=== PATIENT | male | born 1985 | race Two or more races ===

== ENCOUNTER 2018-08-21 08:44 | Inpatient (IN) | payer OTHER ==
[2018-08-21 09:05] VITALS: BMI 20.9
--- NOTE | 2018-08-21 09:35 | HP ---
COWS - Scale Resting Pulse: 0= NE 80 or Below Sweatin= Chills/Flushing Restless Observation: 3= Extraneous Movement Pupil Size: 1= Pupils >than Normal Bone or Joint Aches: 2= Severe Diffuse Aches Runny Nose/ Eye Tearin= Runny Nose/Eyes GI Upset > 30mins: 2= Nausea/Diarrhea Tremor Observation: 2= Slight Tremor Visible Yawning Observation: 2= >3x During Session Anxiety or Irritability: 2=Irritable/Anxious Goose Flesh Skin: 0=Smooth Skin COWS Score: 17 CIWA Score - Admission Criteria [facility] Guidelines: Admission for Medically Managed Detox: Requires at least one of the followin. CIWA greater than 12 2. Seizures within the past 24 hours 3. Delirium tremens within the past 24 hours 4. Hallucinations within the past 24 hours 5. Acute intervention needed for co occurring medical disorder 6. Acute intervention needed for co occurring psychiatric disorder 7. Severe withdrawal that cannot be handled at a lower level of care (continued vomiting, continued diarrhea, abnormal vital signs) requiring intravenous medication and/or fluids 8. Admission ROS [facility] - [facility] Chief Complaint: i am here to stop using heroin and cocaine Allergies/Adverse Reactions: Allergies Allergy/AdvReac Type Severity Reaction Status Date / Time No Known Allergies Allergy Verified 08/21/18 09:48 History of Present Illness: this 32 years old male with heroin and cocaine dependence,seeking detox, withdrawal symptom,never been in detox before history of juvenile diabetes mellitus,non compliance hiv positive since weight loss nicotine dependence 10 cigarette/day anxiety,depression,bipolar disorder no medication no significant period of sobriety Exam Limitations: No Limitations - Ebola screening Have you traveled outside of the country in the last 21 days: No Have you had contact with anyone from an Ebola affected area: No Have you been sick,other than usual withdrawal symptoms: No Do you have a fever: No - Review of Systems Constitutional: Chills, Loss of Appetite, Malaise, Night Sweats, Changes in sleep, Weakness, Unintentional Wgt. Loss EENT: reports: Tearing, Nose Congestion Respiratory: reports: No Symptoms reported Cardiac: reports: No Symptoms Reported GI: reports: Nausea, Vomiting, Abdominal cramping : reports: No Symptoms Reported Musculoskeletal: reports: Back Pain, Joint Pain, Muscle Pain, Joint Stiffness Integumentary: reports: Dryness Neuro: reports: Headache, Tremors Endocrine: reports: No Symptoms Reported, Other (iddm) Hematology: reports: No Symptoms Reported, Other (hiv) Psychiatric: reports: No Sypmtoms Reported, Judgement Intact, Mood/Affect Appropiate, Orientated x3 Other Systems: Reviewed and Negative Patient History - Patient Medical History Hx Anemia: No Hx Asthma: No Hx Chronic Obstructive Pulmonary Disease (COPD): No Hx Cancer: No Hx Cardiac Disorders: No Hx Congestive Heart Failure: No Hx Hypertension: No Hx Hypercholesterolemia: No Hx Pacemaker: No HX Cerebrovascular Accident: No Hx Seizures: No Hx Dementia: No Hx Diabetes: Yes (juvenile dm on insulin) Hx Gastrointestinal Disorders: No Hx Liver Disease: No Hx Genitourinary Disorders: No Hx Sexually Transmitted Disorders: No Hx Renal Disease (ESRD): No Hx Thyroid Disease: No Hx Human Immunodeficiency Virus (HIV): Yes (since childbirth) Hx Hepatitis C: No Hx Depression: Yes (anxiety) Hx Suicide Attempt: No Hx Bipolar Disorder: Yes Hx Schizophrenia: No Other Medical History: no suicidal,no homicidal - Patient Surgical History Past Surgical History: No - PPD History Previous Implant?: Yes Documented Results: Negative w/o proof Implanted On Prior [facility] Admission?: No PPD to be Administered?: Yes - Smoking Cessation Smoking history: Current every day smoker Have you smoked in the past 12 months: Yes Aproximately how many cigarettes per day: 10 Hx Chewing Tobacco Use: No Initiated information on smoking cessation: Yes 'Breaking Loose' booklet given: 08/21/18 - Substance & Tx. History Hx Alcohol Use: No Hx Substance Use: Yes Substance Use Type: Cocaine, Heroin Hx Substance Use Treatment: No - Substances Abused Heroin Route: Inhalation Frequency: Daily Amount used: 7 bags Age of first use: 26 Date of Last Use: 08/20/18 Cocaine Route: Smoking Frequency: 3-6 times per week Amount used: 300$ Age of first use: 31 Date of Last Use: 08/19/18 Family Disease History - Family Disease History Family History: Denies Admission Physical Exam BHS - Vital Signs Vital Signs: Vital Signs - 24 hr 08/21/18 09:02 Temperature 97.4 F L Pulse Rate 77 Respiratory 20 Rate Blood Pressure 117/86 - Physical General Appearance: Yes: Moderate Distress, Tremorous, Irritable, Sweating, Anxious HEENTM: Yes: Normal ENT Inspection, VICTORINA, Pharynx Normal Respiratory: Yes: Lungs Clear, Normal Breath Sounds, No Respiratory Distress Neck: Yes: Within Normal Limits, Supple, Trachea in good position Breast: Yes: Within Normal Limits Cardiology: Yes: Within Normal Limits, Regular Rhythm, Regular Rate, S1, S2 Abdominal: Yes: Within Normal Limits, Normal Bowel Sounds, Non Tender, Flat, Soft Genitourinary: Yes: Within Normal Limits Back: Yes: Normal Inspection, Muscle Spasm Musculoskeletal: Yes: Back pain, Joint Stiffness, Muscle Pain Extremities: Yes: Tremors Neurological: Yes: vascular technologist II-XII NML intact, Fully Oriented, Alert, Motor Strength 5/5 Integumentary: Yes: Dry Lymphatic: Yes: Within Normal Limits - Diagnostic (1) Opioid dependence with withdrawal Current Visit: Yes Status: Acute (2) Cocaine dependence Current Visit: Yes Status: Acute (3) HIV (human immunodeficiency virus infection) Current Visit: Yes Status: Acute (4) Nicotine dependence Current Visit: Yes Status: Acute (5) Weight loss Current Visit: Yes Status: Acute (6) Dehydration Current Visit: Yes Status: Acute (7) Bipolar disorder Current Visit: Yes Status: Acute (8) IDDM (insulin dependent diabetes mellitus) Current Visit: Yes Status: Acute Cleared for Admission S - Detox or Rehab [facility] Level of Care: Medically Managed Detox Regimen/Protocol: Methadone [facility] Breath Alcohol Content Breath Alcohol Content: 0 Urine Drug Screen - Results Drug Screen Negative: No Urine Drug Screen Results: DONIS-Cocaine, OPI-Opiates Inpatient Rehab Admission - Rehab Decision to Admit Inpatient rehab admission?: No
[2018-08-21] MEDS ORDERED: P-EPHED 60MG/TRIPROLIDI 2.5MG TABLET PO PRN (09:44)
[2018-08-21] MEDS ORDERED: MAGNESIUM CITRATE 300 ML BOTTLE PO PRN (09:44)
[2018-08-21] MEDS ORDERED: MENTHOL/PHENOL 1 EACH UD MM PRN (09:44)
[2018-08-21] MEDS ORDERED: guaiFENesin/D-METHORPHAN HB 10 ML UNIT-DOSE CUPS PO PRN (09:44)
[2018-08-21] MEDS ORDERED: MAGNESIUM HYDROX 2400MG/30ML ORAL SUSPENSION 30 ML CUP PO PRN (09:44)
[2018-08-21] MEDS ORDERED: IBUPROFEN 400 MG TABLET (FP) PO PRN (09:44)
[2018-08-21] MEDS ORDERED: hydrOXYzine PAMOATE 25 MG CAPSULE (FP) PO PRN (09:44)
[2018-08-21] MEDS ORDERED: ACETAMINOPHEN 325 MG TABLET (FP) PO PRN (09:44)
[2018-08-21] MEDS ORDERED: LOPERAMIDE HCL 2 MG CAPSULE PO PRN (09:44)
[2018-08-21] MEDS ORDERED: NICOTINE POLACRILEX 2 MG GUM BC PRN (09:44)
[2018-08-21] MEDS ORDERED: MAG HYDROX/AL HYDROX/SIMETH 30 ML UNIT-DOSE CUP PO PRN (09:44)
[2018-08-21] MEDS ORDERED: METHADONE HCL 10 MG TABLET (FOR DETOX USE ONLY) PO ONE ×2 (11:00→23:00)
[2018-08-21] MEDS: diazePAM 5 MG TABLET PO PRN ×2 (13:10→22:18)
[2018-08-21] MEDS: PRENATAL VITAMINS W/ FOLIC ACID TABLET (FP) PO SCH (13:13)
[2018-08-21] MEDS: INSULIN (NOVOLOG) ASPART 100 UNITS/ML 10ML VIAL SQ SCH ×3 (13:14→22:20)
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
[2018-08-21] MEDS ORDERED: INSULIN (NOVOLOG) ASPART 100 UNITS/ML 10ML VIAL ONE ×2 (16:45→21:54)
[2018-08-21] MEDS: metFORMIN HCL 500 MG TABLET (FP) PO SCH (16:51)
[2018-08-21] MEDS: INSULIN (NOVOLOG MIX 70/30) 100 UNITS/ML MDV SQ SCH (16:51)
[2018-08-21 20:51] LABS: URINE APPEARANCE CLEAR; URINE BILIRUBIN NEGATIVE (<2.0 mg/dL); URINE COLOR LTYELLOW; URINE GLUCOSE (UA) 3+ (NEGATIVE); URINE KETONE TRACE (NEGATIVE); URINE LEUK ESTERASE NEGATIVE (NEGATIVE); URINE NITRITE NEGATIVE (NEGATIVE); URINE PROTEIN 3+ (NEGATIVE); URINE UROBILINOGEN NEGATIVE mg/dL (0.2-1.0)
[2018-08-21 21:06] LABS: EPI CELLS RARE /HPF (FEW); URINE BACTERIA FEW /hpf (NONE SEEN); URINE MUCUS RARE
[2018-08-21] MEDS ORDERED: MELATONIN 5 MG TABLETS PO PRN (22:00)
[2018-08-21] MEDS: THIAMINE HCL 100 MG TABLET (FP) PO SCH (22:18)
[2018-08-22] MEDS: diazePAM 5 MG TABLET PO PRN ×3 (06:28→23:25)
[2018-08-22] MEDS: metFORMIN HCL 500 MG TABLET (FP) PO SCH ×2 (08:00→16:51)
[2018-08-22] MEDS: INSULIN (NOVOLOG MIX 70/30) 100 UNITS/ML MDV SQ SCH ×2 (08:03→16:51)
[2018-08-22] MEDS: INSULIN (NOVOLOG) ASPART 100 UNITS/ML 10ML VIAL SQ SCH ×4 (08:03→23:32)
[2018-08-22] MEDS ORDERED: METHADONE HCL 10 MG TABLET (FOR DETOX USE ONLY) PO ONE (10:00)
[2018-08-22] MEDS: PRENATAL VITAMINS W/ FOLIC ACID TABLET (FP) PO SCH (10:17)
[2018-08-22 10:39] LABS: HEMATOCRIT 41.7 % (35.4-49); HEMOGLOBIN 14.1 GM/dL (11.7-16.9); MCH 34.1 pg (25.7-33.7); MCHC 33.8 g/dl (32.0-35.9); MEAN CELL VOLUME 100.7 fl (80-96); MEAN PLT VOLUME 9.7 fl (7.5-11.1); PLATELET COUNT 197 K/MM3 (134-434); RBC 4.14 M/mm3 (4.00-5.60); RDW 13.6 % (11.9-15.9); WHITE BLOOD COUNT 5.5 K/mm3 (4.0-10.0)
[2018-08-22 11:36] LABS: ALBUMIN 2.7 g/dl (3.4-5.0); ALK PHOS 174 U/L (45-117); ANION GAP 3 MMOL/L (8-16); BILIRUBIN,TOTAL 0.9 mg/dL (0.2-1); BLOOD UREA NITROGEN 11 mg/dL (7-18); CALCIUM 8.4 mg/dL (8.5-10.1); CHLORIDE 104 mmol/L (98-107); CO2 31 mmol/L (21-32); CREATININE 0.9 mg/dL (0.55-1.3); GLUCOSE,RANDOM 146 mg/dL (74-106); POTASSIUM 4.5 mmol/L (3.5-5.1); SGOT/AST 38 U/L (15-37); SGPT/ALT 89 U/L (13-61); SODIUM 138 mmol/L (136-145); TOT PROT 6.4 g/dl (6.4-8.2)
[2018-08-22] MEDS ORDERED: INSULIN (NOVOLOG) ASPART 100 UNITS/ML 10ML VIAL ONE ×2 (11:53→16:48)
--- NOTE | 2018-08-22 14:30 | PN ---
BHS COWS - Scale Resting Pulse: 1= [place] 81-100 Sweatin= Chills/Flushing Restless Observation: 0= Sits Still Pupil Size: 0= Normal to Room Light Bone or Joint Aches: 2= Severe Diffuse Aches Runny Nose/ Eye Tearin= None GI Upset > 30mins: 0= None Tremor Observation of Outstretched Hands: 2= Slight Tremor Visible Yawning Observation: 1= 1-2x During Session Anxiety or Irritability: 2=Irritable/Anxious Goose Flesh Skin: 3=Piloerection COWS Score: 12 BHS Progress Note (SOAP) Subjective: Body Aches, Interrupted Sleep, Sweating, Tremors, Fatigue. Objective: PATIENT A & O X 3, OBSERVED AMBULATING ON UNIT. IN NO ACUTE DISTRESS. 08/22/18 14:26 Vital Signs Temperature 95.7 F L 08/22/18 09:15 Pulse Rate 82 08/22/18 09:15 Respiratory Rate 16 08/22/18 09:15 Blood Pressure 118/80 08/22/18 09:15 O2 Sat by Pulse Oximetry (%) Laboratory Tests 08/21/18 08/21/18 08/21/18 10:14 16:39 18:59 WBC RBC Hgb Hct MCV MCH MCHC RDW Plt Count MPV Sodium Potassium Chloride Carbon Dioxide Anion Gap BUN Creatinine Creat Clearance w eGFR POC Glucometer 468 573 Random Glucose Calcium Total Bilirubin AST ALT Alkaline Phosphatase Total Protein Albumin Urine Color Ltyellow Urine Appearance Clear Urine pH 6.0 Ur Specific [place] 1.042 H Urine Protein 3+ H Urine Glucose (UA) 3+ H Urine Ketones Trace H Urine Blood 1+ H Urine Nitrite Negative Urine Bilirubin Negative Urine Urobilinogen Negative Ur Leukocyte Esterase Negative Urine WBC (Auto) 2 Urine RBC (Auto) 3 Ur Epithelial Cells Rare Urine Bacteria Few Urine Mucus Rare RPR Titer 08/21/18 08/22/18 08/22/18 21:50 06:00 06:21 WBC 5.5 RBC 4.14 Hgb 14.1 Hct 41.7 MCV 100.7 H MCH 34.1 H MCHC 33.8 RDW 13.6 Plt Count 197 MPV 9.7 Sodium Potassium Chloride Carbon Dioxide Anion Gap BUN Creatinine Creat Clearance w eGFR POC Glucometer 160 115 Random Glucose Calcium Total Bilirubin AST ALT Alkaline Phosphatase Total Protein Albumin Urine Color Urine Appearance Urine pH Ur Specific [place] Urine Protein Urine Glucose (UA) Urine Ketones Urine Blood Urine Nitrite Urine Bilirubin Urine Urobilinogen Ur Leukocyte Esterase Urine WBC (Auto) Urine RBC (Auto) Ur Epithelial Cells Urine Bacteria Urine Mucus RPR Titer 08/22/18 08/22/18 08/22/18 08:38 08:38 11:50 WBC RBC Hgb Hct MCV MCH MCHC RDW Plt Count MPV Sodium 138 Potassium 4.5 Chloride 104 Carbon Dioxide 31 Anion Gap 3 L BUN 11 Creatinine 0.9 Creat Clearance w eGFR > 60 POC Glucometer 173 Random Glucose 146 H Calcium 8.4 L Total Bilirubin 0.9 AST 38 H ALT 89 H Alkaline Phosphatase 174 H Total Protein 6.4 Albumin 2.7 L Urine Color Urine Appearance Urine pH Ur Specific [place] Urine Protein Urine Glucose (UA) Urine Ketones Urine Blood Urine Nitrite Urine Bilirubin Urine Urobilinogen Ur Leukocyte Esterase Urine WBC (Auto) Urine RBC (Auto) Ur Epithelial Cells Urine Bacteria Urine Mucus RPR Titer Nonreactive LABS NOTED. Assessment: 08/22/18 14:26 WITHDRAWAL SYMPTOMS. Plan: CONTINUE DETOX. INCREASE DAILY PO FLUID INTAKE.
[2018-08-22] MEDS: LIDOCAINE 5% TOPICAL PATCH TP SCH (18:25)
[2018-08-22] MEDS: THIAMINE HCL 100 MG TABLET (FP) PO SCH (23:15)
[2018-08-22] MEDS: LIDOCAINE PATCH REMOVAL MC SCH (23:32)
[2018-08-23] MEDS: diazePAM 5 MG TABLET PO PRN ×4 (05:28→22:44)
[2018-08-23] MEDS: metFORMIN HCL 500 MG TABLET (FP) PO SCH ×2 (06:16→17:25)
[2018-08-23] MEDS: INSULIN (NOVOLOG) ASPART 100 UNITS/ML 10ML VIAL SQ SCH ×4 (07:08→22:39)
[2018-08-23] MEDS: INSULIN (NOVOLOG MIX 70/30) 100 UNITS/ML MDV SQ SCH ×2 (07:59→17:32)
[2018-08-23] MEDS ORDERED: METHADONE HCL 5 MG TABLET (FOR DETOX USE ONLY) PO ONE (10:00)
[2018-08-23] MEDS: PRENATAL VITAMINS W/ FOLIC ACID TABLET (FP) PO SCH (10:51)
[2018-08-23] MEDS: LIDOCAINE 5% TOPICAL PATCH TP SCH (10:51)
--- NOTE | 2018-08-23 11:21 | PN ---
S COWS - Scale Resting Pulse: 1= [place] 81-100 Sweatin= Chills/Flushing Restless Observation: 1= Difficult to Sit Still Pupil Size: 1= Pupils >than Normal Bone or Joint Aches: 2= Severe Diffuse Aches Runny Nose/ Eye Tearin= Nasal Congestion GI Upset > 30mins: 1= Stomach Cramp Tremor Observation of Outstretched Hands: 2= Slight Tremor Visible Yawning Observation: 0= None Anxiety or Irritability: 1=Feels Anxious/Irritable Goose Flesh Skin: 0=Smooth Skin COWS Score: 11 S Progress Note (SOAP) Subjective: interrupted sleep, sweats, lbp Objective: 08/23/18 11:17 Vital Signs Temperature 97.8 F 08/23/18 08:48 Pulse Rate 90 08/23/18 08:48 Respiratory Rate 18 08/23/18 08:48 Blood Pressure 116/87 08/23/18 08:48 O2 Sat by Pulse Oximetry (%) Laboratory Tests 08/21/18 08/21/18 08/21/18 10:14 16:39 18:59 WBC RBC Hgb Hct MCV MCH MCHC RDW Plt Count MPV Sodium Potassium Chloride Carbon Dioxide Anion Gap BUN Creatinine Creat Clearance w eGFR POC Glucometer 468 573 Random Glucose Calcium Total Bilirubin AST ALT Alkaline Phosphatase Total Protein Albumin Urine Color Ltyellow Urine Appearance Clear Urine pH 6.0 Ur Specific [place] 1.042 H Urine Protein 3+ H Urine Glucose (UA) 3+ H Urine Ketones Trace H Urine Blood 1+ H Urine Nitrite Negative Urine Bilirubin Negative Urine Urobilinogen Negative Ur Leukocyte Esterase Negative Urine WBC (Auto) 2 Urine RBC (Auto) 3 Ur Epithelial Cells Rare Urine Bacteria Few Urine Mucus Rare RPR Titer 08/21/18 08/22/18 08/22/18 21:50 06:00 06:21 WBC 5.5 RBC 4.14 Hgb 14.1 Hct 41.7 MCV 100.7 H MCH 34.1 H MCHC 33.8 RDW 13.6 Plt Count 197 MPV 9.7 Sodium Potassium Chloride Carbon Dioxide Anion Gap BUN Creatinine Creat Clearance w eGFR POC Glucometer 160 115 Random Glucose Calcium Total Bilirubin AST ALT Alkaline Phosphatase Total Protein Albumin Urine Color Urine Appearance Urine pH Ur Specific [place] Urine Protein Urine Glucose (UA) Urine Ketones Urine Blood Urine Nitrite Urine Bilirubin Urine Urobilinogen Ur Leukocyte Esterase Urine WBC (Auto) Urine RBC (Auto) Ur Epithelial Cells Urine Bacteria Urine Mucus RPR Titer 08/22/18 08/22/18 08/22/18 08:38 08:38 11:50 WBC RBC Hgb Hct MCV MCH MCHC RDW Plt Count MPV Sodium 138 Potassium 4.5 Chloride 104 Carbon Dioxide 31 Anion Gap 3 L BUN 11 Creatinine 0.9 Creat Clearance w eGFR > 60 POC Glucometer 173 Random Glucose 146 H Calcium 8.4 L Total Bilirubin 0.9 AST 38 H ALT 89 H Alkaline Phosphatase 174 H Total Protein 6.4 Albumin 2.7 L Urine Color Urine Appearance Urine pH Ur Specific [place] Urine Protein Urine Glucose (UA) Urine Ketones Urine Blood Urine Nitrite Urine Bilirubin Urine Urobilinogen Ur Leukocyte Esterase Urine WBC (Auto) Urine RBC (Auto) Ur Epithelial Cells Urine Bacteria Urine Mucus RPR Titer Nonreactive 08/22/18 08/22/18 08/22/18 16:33 22:28 23:11 WBC RBC Hgb Hct MCV MCH MCHC RDW Plt Count MPV Sodium Potassium Chloride Carbon Dioxide Anion Gap BUN Creatinine Creat Clearance w eGFR POC Glucometer 252 50 95 Random Glucose Calcium Total Bilirubin AST ALT Alkaline Phosphatase Total Protein Albumin Urine Color Urine Appearance Urine pH Ur Specific [place] Urine Protein Urine Glucose (UA) Urine Ketones Urine Blood Urine Nitrite Urine Bilirubin Urine Urobilinogen Ur Leukocyte Esterase Urine WBC (Auto) Urine RBC (Auto) Ur Epithelial Cells Urine Bacteria Urine Mucus RPR Titer 08/23/18 05:25 WBC RBC Hgb Hct MCV MCH MCHC RDW Plt Count MPV Sodium Potassium Chloride Carbon Dioxide Anion Gap BUN Creatinine Creat Clearance w eGFR POC Glucometer 104 Random Glucose Calcium Total Bilirubin AST ALT Alkaline Phosphatase Total Protein Albumin Urine Color Urine Appearance Urine pH Ur Specific [place] Urine Protein Urine Glucose (UA) Urine Ketones Urine Blood Urine Nitrite Urine Bilirubin Urine Urobilinogen Ur Leukocyte Esterase Urine WBC (Auto) Urine RBC (Auto) Ur Epithelial Cells Urine Bacteria Urine Mucus RPR Titer pt aox3 in nad ambulating decreased rom -back Assessment: 08/23/18 11:18 withdrawal sx's m lbp dm elevate sgpt 08/23/18 11:18 08/23/18 11:19 Plan: cont. detox increase fluids lidocaine patch monitor glucose
[2018-08-23] MEDS ORDERED: INSULIN (NOVOLOG) ASPART 100 UNITS/ML 10ML VIAL ONE (22:41)
[2018-08-23] MEDS: THIAMINE HCL 100 MG TABLET (FP) PO SCH (22:43)
[2018-08-23] MEDS: LIDOCAINE PATCH REMOVAL MC SCH (22:57)
[2018-08-24] MEDS: diazePAM 5 MG TABLET PO PRN (06:31)
[2018-08-24] MEDS: metFORMIN HCL 500 MG TABLET (FP) PO SCH ×2 (06:31→17:05)
[2018-08-24] MEDS: INSULIN (NOVOLOG) ASPART 100 UNITS/ML 10ML VIAL SQ SCH ×4 (06:49→22:24)
[2018-08-24] MEDS: INSULIN (NOVOLOG MIX 70/30) 100 UNITS/ML MDV SQ SCH ×2 (08:18→17:06)
[2018-08-24] MEDS ORDERED: METHADONE HCL 5 MG TABLET (FOR DETOX USE ONLY) PO ONE (10:00)
[2018-08-24] MEDS: PRENATAL VITAMINS W/ FOLIC ACID TABLET (FP) PO SCH (10:32)
[2018-08-24] MEDS: LIDOCAINE 5% TOPICAL PATCH TP SCH (10:33)
[2018-08-24] MEDS ORDERED: INSULIN (NOVOLOG) ASPART 100 UNITS/ML 10ML VIAL ONE ×2 (12:07→16:59)
--- NOTE | 2018-08-24 13:04 | PN ---
BHS Progress Note (SOAP) Subjective: PT C/O LOWER BACK PAIN, HOT/COLD CHILLS. Objective: 08/24/18 13:04 Vital Signs - 8 hr 08/24/18 08/24/18 06:00 09:57 Temperature 97.7 F 97.9 F Pulse Rate 68 83 Respiratory 18 18 Rate Blood Pressure 122/64 140/70 Laboratory Tests 08/21/18 08/21/18 08/21/18 10:14 16:39 18:59 WBC RBC Hgb Hct MCV MCH MCHC RDW Plt Count MPV Sodium Potassium Chloride Carbon Dioxide Anion Gap BUN Creatinine Creat Clearance w eGFR POC Glucometer 468 573 Random Glucose Calcium Total Bilirubin AST ALT Alkaline Phosphatase Total Protein Albumin Urine Color Ltyellow Urine Appearance Clear Urine pH 6.0 Ur Specific [place] 1.042 H Urine Protein 3+ H Urine Glucose (UA) 3+ H Urine Ketones Trace H Urine Blood 1+ H Urine Nitrite Negative Urine Bilirubin Negative Urine Urobilinogen Negative Ur Leukocyte Esterase Negative Urine WBC (Auto) 2 Urine RBC (Auto) 3 Ur Epithelial Cells Rare Urine Bacteria Few Urine Mucus Rare RPR Titer 08/21/18 08/22/18 08/22/18 21:50 06:00 06:21 WBC 5.5 RBC 4.14 Hgb 14.1 Hct 41.7 MCV 100.7 H MCH 34.1 H MCHC 33.8 RDW 13.6 Plt Count 197 MPV 9.7 Sodium Potassium Chloride Carbon Dioxide Anion Gap BUN Creatinine Creat Clearance w eGFR POC Glucometer 160 115 Random Glucose Calcium Total Bilirubin AST ALT Alkaline Phosphatase Total Protein Albumin Urine Color Urine Appearance Urine pH Ur Specific [place] Urine Protein Urine Glucose (UA) Urine Ketones Urine Blood Urine Nitrite Urine Bilirubin Urine Urobilinogen Ur Leukocyte Esterase Urine WBC (Auto) Urine RBC (Auto) Ur Epithelial Cells Urine Bacteria Urine Mucus RPR Titer 08/22/18 08/22/18 08/22/18 08:38 08:38 11:50 WBC RBC Hgb Hct MCV MCH MCHC RDW Plt Count MPV Sodium 138 Potassium 4.5 Chloride 104 Carbon Dioxide 31 Anion Gap 3 L BUN 11 Creatinine 0.9 Creat Clearance w eGFR > 60 POC Glucometer 173 Random Glucose 146 H Calcium 8.4 L Total Bilirubin 0.9 AST 38 H ALT 89 H Alkaline Phosphatase 174 H Total Protein 6.4 Albumin 2.7 L Urine Color Urine Appearance Urine pH Ur Specific [place] Urine Protein Urine Glucose (UA) Urine Ketones Urine Blood Urine Nitrite Urine Bilirubin Urine Urobilinogen Ur Leukocyte Esterase Urine WBC (Auto) Urine RBC (Auto) Ur Epithelial Cells Urine Bacteria Urine Mucus RPR Titer Nonreactive 08/22/18 08/22/18 08/22/18 16:33 22:28 23:11 WBC RBC Hgb Hct MCV MCH MCHC RDW Plt Count MPV Sodium Potassium Chloride Carbon Dioxide Anion Gap BUN Creatinine Creat Clearance w eGFR POC Glucometer 252 50 95 Random Glucose Calcium Total Bilirubin AST ALT Alkaline Phosphatase Total Protein Albumin Urine Color Urine Appearance Urine pH Ur Specific [place] Urine Protein Urine Glucose (UA) Urine Ketones Urine Blood Urine Nitrite Urine Bilirubin Urine Urobilinogen Ur Leukocyte Esterase Urine WBC (Auto) Urine RBC (Auto) Ur Epithelial Cells Urine Bacteria Urine Mucus RPR Titer 08/23/18 08/23/18 08/23/18 05:25 12:02 16:20 WBC RBC Hgb Hct MCV MCH MCHC RDW Plt Count MPV Sodium Potassium Chloride Carbon Dioxide Anion Gap BUN Creatinine Creat Clearance w eGFR POC Glucometer 104 57 97 Random Glucose Calcium Total Bilirubin AST ALT Alkaline Phosphatase Total Protein Albumin Urine Color Urine Appearance Urine pH Ur Specific [place] Urine Protein Urine Glucose (UA) Urine Ketones Urine Blood Urine Nitrite Urine Bilirubin Urine Urobilinogen Ur Leukocyte Esterase Urine WBC (Auto) Urine RBC (Auto) Ur Epithelial Cells Urine Bacteria Urine Mucus RPR Titer 08/23/18 08/24/18 08/24/18 22:38 06:30 12:02 WBC RBC Hgb Hct MCV MCH MCHC RDW Plt Count MPV Sodium Potassium Chloride Carbon Dioxide Anion Gap BUN Creatinine Creat Clearance w eGFR POC Glucometer 371 99 407 Random Glucose Calcium Total Bilirubin AST ALT Alkaline Phosphatase Total Protein Albumin Urine Color Urine Appearance Urine pH Ur Specific [place] Urine Protein Urine Glucose (UA) Urine Ketones Urine Blood Urine Nitrite Urine Bilirubin Urine Urobilinogen Ur Leukocyte Esterase Urine WBC (Auto) Urine RBC (Auto) Ur Epithelial Cells Urine Bacteria Urine Mucus RPR Titer Assessment: 08/24/18 13:04 WITHDRAWAL SX Plan: CONTINUE DETOX
[2018-08-24] MEDS: THIAMINE HCL 100 MG TABLET (FP) PO SCH (22:24)
[2018-08-24] MEDS: LIDOCAINE PATCH REMOVAL MC SCH (23:48)
[2018-08-25] MEDS: INSULIN (NOVOLOG) ASPART 100 UNITS/ML 10ML VIAL SQ SCH ×2 (06:28→11:43)
[2018-08-25] MEDS: metFORMIN HCL 500 MG TABLET (FP) PO SCH (06:28)
[2018-08-25] MEDS: INSULIN (NOVOLOG MIX 70/30) 100 UNITS/ML MDV SQ SCH (08:25)
[2018-08-25] MEDS ORDERED: METHADONE HCL 10 MG TABLET (FOR DETOX USE ONLY) PO ONE (10:00)
[2018-08-25] MEDS: PRENATAL VITAMINS W/ FOLIC ACID TABLET (FP) PO SCH (10:30)
[2018-08-25] MEDS: LIDOCAINE 5% TOPICAL PATCH TP SCH (10:31)
[2018-08-25] MEDS ORDERED: cloNIDine HCL 0.1 MG TABLET PO PRN (10:58)
[2018-08-25 13:22] VITALS: BP 149/80; PULSE 101; TEMP 99.7
--- NOTE | 2018-08-25 15:33 | PN ---
[facility] Progress Note (SOAP) Subjective: Runny nose, feeling weak, chills, interrupted sleep, anxious Objective: 08/25/18 15:17 Last Vital Signs Temp Pulse Resp BP Pulse Ox 99.7 F H 101 H 18 149/80 08/25/18 13:21 08/25/18 13:21 08/25/18 13:21 08/25/18 13:21 Laboratory Tests 08/21/18 08/21/18 08/21/18 10:14 16:39 18:59 WBC RBC Hgb Hct MCV MCH MCHC RDW Plt Count MPV Sodium Potassium Chloride Carbon Dioxide Anion Gap BUN Creatinine Creat Clearance w eGFR POC Glucometer 468 573 Random Glucose Calcium Total Bilirubin AST ALT Alkaline Phosphatase Total Protein Albumin Urine Color Ltyellow Urine Appearance Clear Urine pH 6.0 Ur Specific [place] 1.042 H Urine Protein 3+ H Urine Glucose (UA) 3+ H Urine Ketones Trace H Urine Blood 1+ H Urine Nitrite Negative Urine Bilirubin Negative Urine Urobilinogen Negative Ur Leukocyte Esterase Negative Urine WBC (Auto) 2 Urine RBC (Auto) 3 Ur Epithelial Cells Rare Urine Bacteria Few Urine Mucus Rare RPR Titer 08/21/18 08/22/18 08/22/18 21:50 06:00 06:21 WBC 5.5 RBC 4.14 Hgb 14.1 Hct 41.7 MCV 100.7 H MCH 34.1 H MCHC 33.8 RDW 13.6 Plt Count 197 MPV 9.7 Sodium Potassium Chloride Carbon Dioxide Anion Gap BUN Creatinine Creat Clearance w eGFR POC Glucometer 160 115 Random Glucose Calcium Total Bilirubin AST ALT Alkaline Phosphatase Total Protein Albumin Urine Color Urine Appearance Urine pH Ur Specific [place] Urine Protein Urine Glucose (UA) Urine Ketones Urine Blood Urine Nitrite Urine Bilirubin Urine Urobilinogen Ur Leukocyte Esterase Urine WBC (Auto) Urine RBC (Auto) Ur Epithelial Cells Urine Bacteria Urine Mucus RPR Titer 08/22/18 08/22/18 08/22/18 08:38 08:38 11:50 WBC RBC Hgb Hct MCV MCH MCHC RDW Plt Count MPV Sodium 138 Potassium 4.5 Chloride 104 Carbon Dioxide 31 Anion Gap 3 L BUN 11 Creatinine 0.9 Creat Clearance w eGFR > 60 POC Glucometer 173 Random Glucose 146 H Calcium 8.4 L Total Bilirubin 0.9 AST 38 H ALT 89 H Alkaline Phosphatase 174 H Total Protein 6.4 Albumin 2.7 L Urine Color Urine Appearance Urine pH Ur Specific [place] Urine Protein Urine Glucose (UA) Urine Ketones Urine Blood Urine Nitrite Urine Bilirubin Urine Urobilinogen Ur Leukocyte Esterase Urine WBC (Auto) Urine RBC (Auto) Ur Epithelial Cells Urine Bacteria Urine Mucus RPR Titer Nonreactive 08/22/18 08/22/18 08/22/18 16:33 22:28 23:11 WBC RBC Hgb Hct MCV MCH MCHC RDW Plt Count MPV Sodium Potassium Chloride Carbon Dioxide Anion Gap BUN Creatinine Creat Clearance w eGFR POC Glucometer 252 50 95 Random Glucose Calcium Total Bilirubin AST ALT Alkaline Phosphatase Total Protein Albumin Urine Color Urine Appearance Urine pH Ur Specific [place] Urine Protein Urine Glucose (UA) Urine Ketones Urine Blood Urine Nitrite Urine Bilirubin Urine Urobilinogen Ur Leukocyte Esterase Urine WBC (Auto) Urine RBC (Auto) Ur Epithelial Cells Urine Bacteria Urine Mucus RPR Titer 08/23/18 08/23/18 08/23/18 05:25 12:02 16:20 WBC RBC Hgb Hct MCV MCH MCHC RDW Plt Count MPV Sodium Potassium Chloride Carbon Dioxide Anion Gap BUN Creatinine Creat Clearance w eGFR POC Glucometer 104 57 97 Random Glucose Calcium Total Bilirubin AST ALT Alkaline Phosphatase Total Protein Albumin Urine Color Urine Appearance Urine pH Ur Specific [place] Urine Protein Urine Glucose (UA) Urine Ketones Urine Blood Urine Nitrite Urine Bilirubin Urine Urobilinogen Ur Leukocyte Esterase Urine WBC (Auto) Urine RBC (Auto) Ur Epithelial Cells Urine Bacteria Urine Mucus RPR Titer 08/23/18 08/24/18 08/24/18 22:38 06:30 12:02 WBC RBC Hgb Hct MCV MCH MCHC RDW Plt Count MPV Sodium Potassium Chloride Carbon Dioxide Anion Gap BUN Creatinine Creat Clearance w eGFR POC Glucometer 371 99 407 Random Glucose Calcium Total Bilirubin AST ALT Alkaline Phosphatase Total Protein Albumin Urine Color Urine Appearance Urine pH Ur Specific [place] Urine Protein Urine Glucose (UA) Urine Ketones Urine Blood Urine Nitrite Urine Bilirubin Urine Urobilinogen Ur Leukocyte Esterase Urine WBC (Auto) Urine RBC (Auto) Ur Epithelial Cells Urine Bacteria Urine Mucus RPR Titer 08/24/18 08/24/18 08/25/18 16:43 22:19 05:48 WBC RBC Hgb Hct MCV MCH MCHC RDW Plt Count MPV Sodium Potassium Chloride Carbon Dioxide Anion Gap BUN Creatinine Creat Clearance w eGFR POC Glucometer 455 83 151 Random Glucose Calcium Total Bilirubin AST ALT Alkaline Phosphatase Total Protein Albumin Urine Color Urine Appearance Urine pH Ur Specific [place] Urine Protein Urine Glucose (UA) Urine Ketones Urine Blood Urine Nitrite Urine Bilirubin Urine Urobilinogen Ur Leukocyte Esterase Urine WBC (Auto) Urine RBC (Auto) Ur Epithelial Cells Urine Bacteria Urine Mucus RPR Titer 08/25/18 11:39 WBC RBC Hgb Hct MCV MCH MCHC RDW Plt Count MPV Sodium Potassium Chloride Carbon Dioxide Anion Gap BUN Creatinine Creat Clearance w eGFR POC Glucometer 237 Random Glucose Calcium Total Bilirubin AST ALT Alkaline Phosphatase Total Protein Albumin Urine Color Urine Appearance Urine pH Ur Specific [place] Urine Protein Urine Glucose (UA) Urine Ketones Urine Blood Urine Nitrite Urine Bilirubin Urine Urobilinogen Ur Leukocyte Esterase Urine WBC (Auto) Urine RBC (Auto) Ur Epithelial Cells Urine Bacteria Urine Mucus RPR Titer Labs reviewed: elevated glucose due to dm; UA shows: 3+ protein, 3+ glucose, 1+ blood Assessment: 08/25/18 15:19 Withdrawal symptoms Noted with hyperglycemia and abnormal UA Plan: Continue detox Hyperglycemia secondary to DMT2: encouraged adherence to diabetic diet, continue regimen Abnormal UA: encouraged PO water hydration Patient scheduled for discharge tomorrow
[2018-08-26] MEDS ORDERED: METHADONE HCL 5 MG TABLET (FOR DETOX USE ONLY) PO ONE (06:00)
== END 2018-08-25 16:10 | disposition left against medical advice (07) | DRG 770 ==
LOC: YASAS 08:44 → Y6N 10:32
PROVIDERS: ADMIT Surgery; ATTEND Surgery
PROC: HZ2ZZZZ Detoxification Services for Substance Abuse Treatment (ICD-10-PCS; principal; 2018-08-21)
DX: F11.23 Opioid dependence with withdrawal (principal); F14.20 Cocaine dependence, uncomplicated; F17.210 Nicotine dependence, cigarettes, uncomplicated; F19.282 Other psychoactive substance dependence with psychoactive substance-induced sleep disorder; F31.9 Bipolar disorder, unspecified; Z21 Asymptomatic human immunodeficiency virus [HIV] infection status; E11.65 Type 2 diabetes mellitus with hyperglycemia; M54.5 Low back pain; Z79.4 Long term (current) use of insulin
CPT/HCPCS: 36415; 80053; 81003; 81015; 82962; 85027; 86593

== ENCOUNTER 2018-08-27 08:16 | Inpatient (IN) | payer OTHER ==
[2018-08-27 08:58] VITALS: BMI 21.9
--- NOTE | 2018-08-27 09:51 | HP ---
[facility] Rehab Assess/Revision - Admission History Admitted to Rehab from: [facility] Date of Admission to Rehab: 08/27/18 - Vital signs Vital Signs: Vital Signs Period Temp Pulse Resp BP Sys/Garcia Pulse Ox Last 24 Hr 98.9 F 97 18 122/82 - Findings Detox History & Physical reviewed: Yes Concur with findings: Yes Comments/Additional Findings: for rehab as protocol. patient was admitted at [facility] from 08/21/18 to 08/15/18,. signed release ama,non compliance with monitoringof glucso,admit that he will comply with rule and regulation,. history of heroin dependence,k2 abuse,juvenile diabetes ,hiv since baby post. transfusion,hiv non compliance with medication,. bipolar disorder no med, nicotine dependence. for rehab as protocol Inpatient Rehab Admission - Rehab Decision to Admit Inpatient rehab admission?: Yes - Initial Determination Are CD services needed?: Yes Free of communicable disease: Yes Not in need of hospitalization: Yes - Rehab Admission Criteria Previous failed treatment: Yes Poor recovery environment: Yes Comorbidities: Yes Lacks judgement: No Patient is meeting Inpatient Rehab admission criteria:: Yes
[2018-08-27] MEDS ORDERED: MAGNESIUM CITRATE 300 ML BOTTLE PO PRN (09:57)
[2018-08-27] MEDS ORDERED: NICOTINE POLACRILEX 2 MG GUM BUC PRN (09:57)
[2018-08-27] MEDS ORDERED: LOPERAMIDE HCL 2 MG CAPSULE PO PRN (09:57)
[2018-08-27] MEDS ORDERED: IBUPROFEN 400 MG TABLET (FP) PO PRN (09:57)
[2018-08-27] MEDS ORDERED: MAG HYDROX/AL HYDROX/SIMETH 30 ML UNIT-DOSE CUP PO PRN (09:57)
[2018-08-27] MEDS ORDERED: P-EPHED 60MG/TRIPROLIDI 2.5MG TABLET PO PRN (09:57)
[2018-08-27] MEDS ORDERED: MENTHOL/PHENOL 1 EACH UD MM PRN (09:57)
[2018-08-27] MEDS ORDERED: hydrOXYzine PAMOATE 50 MG CAPSULE (FP) PO PRN (09:57)
[2018-08-27] MEDS ORDERED: guaiFENesin/D-METHORPHAN HB 10 ML UNIT-DOSE CUPS PO PRN (09:57)
[2018-08-27] MEDS ORDERED: MAGNESIUM HYDROX 2400MG/30ML ORAL SUSPENSION 30 ML CUP PO PRN (09:57)
[2018-08-27] MEDS ORDERED: ACETAMINOPHEN 325 MG TABLET (FP) PO PRN (09:57)
[2018-08-27] MEDS ORDERED: PRENATAL VITAMINS W/ FOLIC ACID TABLET (FP) PO SCH (11:00)
[2018-08-27] MEDS: INSULIN SLIDING SCALE (NOVOLOG) 1 VIAL SQ SCH ×2 (12:03→17:45)
[2018-08-27 12:08] VITALS: BP 121/83; PULSE 92; TEMP 98.7
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
--- NOTE | 2018-08-27 15:10 | PN ---
[facility] Progress Note Note: NEW PT ADMITTED TODAY. PT STATES HE HAS A PRIMARY CARE DOCTOR DR. CAMERON SOMMERS AT [facility]. PT REPORTS HE SAW THE DOCTOR 2 WEEKS AGO AND STARTED ON A NEW MEDICINE(BUT DID NOT LEGAL INSTRUCTOR FROM PHARMACY OR STARTED YET). NEXT APPOINTMENT WITH HIS DOCTOR IS August. Laboratory Tests 08/27/18 08/27/18 09:58 12:00 POC Glucometer 479 437 ALERT O X 3 NAD PLAN:CONTINUE CARE AND MONITOR PT STATUS. PT EDUCATED ON NCS DIET/ NO REGULAR JUICES. INCREASE PO FLUIDS. CRYSTAL LIGHT BEVERAGE WITH MEALS AND SNACKS.
[2018-08-27] MEDS ORDERED: cloNIDine HCL 0.1 MG TABLET PO PRN (15:45)
[2018-08-27] MEDS ORDERED: CYCLOBENZAPRINE HCL 10 MG TABLET (FP) PO PRN (15:46)
[2018-08-27] MEDS ORDERED: INSULIN (NOVOLOG) ASPART 100 UNITS/ML 10ML VIAL ONE (16:08)
[2018-08-27] MEDS ORDERED: CYCLOBENZAPRINE HCL 10 MG TABLET (FP) PO ONE (16:15)
[2018-08-27] MEDS ORDERED: metFORMIN HCL 500 MG TABLET (FP) PO SCH (16:30)
--- NOTE | 2018-08-27 17:28 | PN ---
[facility] Progress Note Note: Vital Signs Temperature 98.7 F 08/27/18 12:08 Pulse Rate 92 H 08/27/18 12:08 Respiratory Rate 18 08/27/18 12:08 Blood Pressure 121/83 08/27/18 12:08 O2 Sat by Pulse Oximetry (%) Patient left AMA. AOx3, No suicidal / homicidal ideation. Patient reports he no longer wishes to continue with treatment and wishes to leave now. Patient was educated on the risk of interrupting treatment. Patient to follow up with his primary care provider and attached referrals. If worsening symptoms are present, patient to follow up with the emergency room. Patient verbalizes understanding
[2018-08-27] MEDS ORDERED: MELATONIN 5 MG TABLETS PO PRN (22:00)
[2018-08-27] MEDS ORDERED: THIAMINE HCL 100 MG TABLET (FP) PO SCH (22:00)
[2018-08-27] MEDS ORDERED: INSULIN (NOVOLOG MIX 70/30) 100 UNITS/ML MDV SQ SCH (22:00)
[2018-08-28] MEDS ORDERED: INSULIN (NOVOLOG MIX 70/30) 100 UNITS/ML MDV SQ SCH (07:00)
== END 2018-08-27 17:30 | disposition left against medical advice (07) | DRG 770 ==
LOC: YASAS 08:16 → Y5N 10:38
PROVIDERS: ADMIT Neuromusculoskeletal Medicine & OMM; ATTEND Neuromusculoskeletal Medicine & OMM
PROC: HZ42ZZZ Group Counseling for Substance Abuse Treatment, Cognitive-Behavioral (ICD-10-PCS; principal; 2018-08-27)
DX: F11.20 Opioid dependence, uncomplicated (principal); F14.20 Cocaine dependence, uncomplicated; F17.210 Nicotine dependence, cigarettes, uncomplicated; F19.282 Other psychoactive substance dependence with psychoactive substance-induced sleep disorder; F19.24 Other psychoactive substance dependence with psychoactive substance-induced mood disorder
CPT/HCPCS: 82962

== ENCOUNTER 2018-09-11 11:23 | Inpatient (IN) | payer OTHER ==
[2018-09-11 15:34] VITALS: BMI 21.9
--- NOTE | 2018-09-11 20:54 | HP ---
"COWS - Scale Resting Pulse: 0= [place] 80 or Below Sweatin=Flushed/Facial Moisture Restless Observation: 0= Sits Still Pupil Size: 0= Normal to Room Light Bone or Joint Aches: 0= None Runny Nose/ Eye Tearin= Runny Nose/Eyes GI Upset > 30mins: 3= Vomiting/Diarrhea Tremor Observation: 0= None Yawning Observation: 0= None Anxiety or Irritability: 2=Irritable/Anxious Goose Flesh Skin: 0=Smooth Skin COWS Score: 9 CIWA Score - Admission Criteria [facility]ASAS Guidelines: Admission for Medically Managed Detox: Requires at least one of the followin. CIWA greater than 12 2. Seizures within the past 24 hours 3. Delirium tremens within the past 24 hours 4. Hallucinations within the past 24 hours 5. Acute intervention needed for co occurring medical disorder 6. Acute intervention needed for co occurring psychiatric disorder 7. Severe withdrawal that cannot be handled at a lower level of care (continued vomiting, continued diarrhea, abnormal vital signs) requiring intravenous medication and/or fluids 8. Admission [facility] Chief Complaint: C/O WORSENING WITHDRAWAL SX'S Allergies/Adverse Reactions: Allergies Allergy/AdvReac Type Severity Reaction Status Date / Time No Known Allergies Allergy Verified 09/11/18 20:19 History of Present Illness: 32 Y.O. MALE WITH HX/O OPIOID DEPENDENCE HERE FOR DETOX. CLIENT IS SELF REFERRED. HE IS KNOWN TO THIS PROGRAM. LAST HERE 1 MONTH AGO.PRESENTS TODAY WITH C/O WORSENING WITHDRAWAL SX'S, COW 9 UTOX + OPI. REPORTS HEROIN DEPENDENCE USING 7 BAGS/ VIA SNIFF DAILY. LAST USE EARLIER TODAY. DENIES INPATIENT TXMENT SINCE. DENIES ANY SIGNIFICANT PERIOD OF CLEAN TIME. DENIES HX/O OVERDOSE, SI/HI , AVH, SEIZURE D/O. HE REPORTS INTERMITTENT USE OF K2 AND CRACK. LIVES ALONE- APT, UNEMPLOYED-SSI, DENIES LEGALS PMHX- DM, HIV, PSYCH- BIPOLAR, DEPRESSION, ANXIETY Search Terms: danielle valles, 1985 Search Date: 09/11/2018 08:47:10 PM The Drug Utilization Report below displays all of the controlled substance prescriptions, if any, that your patient has filled in the last twelve months. The information displayed on this report is compiled from pharmacy submissions to the Department, and accurately reflects the information as submitted by the pharmacies. This report was requested by: Janice Blackburn | Reference #: [id number] Exam Limitations: No Limitations - Ebola screening Have you traveled outside of the country in the last 21 days: No Have you had contact with anyone from an Ebola affected area: No Have you been sick,other than usual withdrawal symptoms: No Do you have a fever: No - Review of Systems Constitutional: Chills, Night Sweats, Changes in sleep, Weakness (GENERALIZED), Unintentional Wgt. Loss EENT: reports: Nose Congestion, Other (RINORRHEA) Respiratory: reports: No Symptoms reported Cardiac: reports: No Symptoms Reported GI: reports: Diarrhea, Poor Appetite, Poor Fluid Intake, Vomiting : reports: No Symptoms Reported Musculoskeletal: reports: No Symptoms Reported Integumentary: reports: Sweating Neuro: reports: No Symptoms reported Endocrine: reports: Other (HX/O DM) Hematology: reports: No Symptoms Reported Psychiatric: reports: Orientated x3, Depressed Other Systems: Reviewed and Negative Patient History - Patient Medical History Hx Anemia: No Hx Asthma: No Hx Chronic Obstructive Pulmonary Disease (COPD): No Hx Cancer: No Hx Cardiac Disorders: No Hx Congestive Heart Failure: No Hx Hypertension: No Hx Hypercholesterolemia: No Hx Pacemaker: No HX Cerebrovascular Accident: No Hx Seizures: No Hx Dementia: No Hx Diabetes: Yes (IDDM) Hx Gastrointestinal Disorders: No Hx Liver Disease: No Hx Genitourinary Disorders: No Hx Sexually Transmitted Disorders: No Hx Renal Disease (ESRD): No Hx Thyroid Disease: No Hx Human Immunodeficiency Virus (HIV): Yes (since childbirth) Hx Hepatitis C: No Hx Depression: Yes Hx Suicide Attempt: No Hx Bipolar Disorder: Yes Hx Schizophrenia: No Other Medical History: DENIES - Patient Surgical History Past Surgical History: No Hx Neurologic Surgery: No Hx Cataract Extraction: No Hx Cardiac Surgery: No Hx Lung Surgery: No Hx Breast Surgery: No Hx Breast Biopsy: No Hx Abdominal Surgery: No Hx Appendectomy: No Hx Cholecystectomy: No Hx Genitourinary Surgery: No Hx Section: No Hx Orthopedic Surgery: No Anesthesia Reaction: No - PPD History Previous Implant?: Yes Documented Results: Negative w/proof Implanted On Prior R Admission?: Yes Date: 08/23/18 Results: 0 mm PPD to be Administered?: No - Smoking Cessation Smoking history: Current every day smoker Have you smoked in the past 12 months: Yes Aproximately how many cigarettes per day: 10 Cigars Per Day: 0 Hx Chewing Tobacco Use: No Initiated information on smoking cessation: Yes 'Breaking Loose' booklet given: 09/11/18 - Substance & Tx. History Hx Alcohol Use: No Hx Substance Use: Yes Substance Use Type: Heroin Hx Substance Use Treatment: Yes ([facility]) - Substances Abused Heroin Route: Inhalation Frequency: Daily Amount used: 8 bags Age of first use: 27 Date of Last Use: 09/11/18 Family Disease History - Family Disease History Family History: Denies Admission Physical Exam [facility] - Vital Signs Vital Signs: Vital Signs - 24 hr 09/11/18 15:32 Temperature 98.7 F Pulse Rate 78 Respiratory 18 Rate Blood Pressure 121/73 - Physical General Appearance: Yes: Disheveled, Sweating, Other (MALODUROUS) HEENTM: Yes: EOMI, Normocephalic, Normal Voice, VICTORINA, Pharynx Normal, Nasal Congestion, Rhinorrhea Respiratory: Yes: Chest Non-Tender, Lungs Clear, Normal Breath Sounds, No Respiratory Distress, No Accessory Muscle Use Neck: Yes: No masses,lesions,Nodules, Supple, Trachea in good position Breast: Yes: Breast Exam Deferred Cardiology: Yes: Regular Rhythm, Regular Rate, S1, S2 Abdominal: Yes: Normal Bowel Sounds, Non Tender, Soft, Hernia (UMBILICAL) Genitourinary: Yes: Within Normal Limits Back: Yes: Normal Inspection Musculoskeletal: Yes: full range of Motion, Gait Steady Extremities: Yes: Normal Capillary Refill, Normal Range of Motion, Non-Tender, Tremors Neurological: Yes: Fully Oriented, Alert, Motor Strength 5/5, Depressed Affect Integumentary: Yes: Warm, Moist, Other (LONG UNKEPT NAILS) Lymphatic: Yes: Within Normal Limits - Diagnostic (1) Bipolar disorder Current Visit: Yes Status: Chronic (2) HIV (human immunodeficiency virus infection) Current Visit: Yes Status: Chronic (3) IDDM (insulin dependent diabetes mellitus) Current Visit: Yes Status: Chronic (4) Nicotine dependence Current Visit: Yes Status: Chronic Qualifiers: Nicotine product type: cigarettes Substance use status: uncomplicated Qualified Code(s): F17.210 - Nicotine dependence, cigarettes, uncomplicated (5) Opioid dependence with withdrawal Current Visit: Yes Status: Acute (6) Substance induced mood disorder Current Visit: Yes Status: Chronic (7) Substance-induced sleep disorder Current Visit: Yes Status: Chronic (8) Weight loss Current Visit: Yes Status: Acute Cleared for Admission [facility] - Detox or Rehab [facility] Level of Care: Medically Managed Detox Regimen/Protocol: Methadone Claeared for Rehab Admission: No [facility] Breath Alcohol Content Breath Alcohol Content: 0 Urine Drug Screen - Results Drug Screen Negative: No Urine Drug Screen Results: OPI-Opiates Inpatient Rehab Admission - Rehab Decision to Admit Inpatient rehab admission?: No"
[2018-09-11] MEDS ORDERED: BISMUTH SUBSALICYLATE 524 MG/30 ML UD PO PRN (21:00)
[2018-09-11] MEDS ORDERED: ONDANSETRON *ODT* 4 MG TABLET SL PRN (21:00)
[2018-09-11] MEDS ORDERED: guaiFENesin 200 MG/10 ML 10 ML UNIT-DOSE CUPS PO PRN (21:00)
[2018-09-11] MEDS ORDERED: MAGNESIUM CITRATE 300 ML BOTTLE PO PRN (21:00)
[2018-09-11] MEDS ORDERED: MELATONIN 5 MG TABLETS PO PRN (21:00)
[2018-09-11] MEDS ORDERED: DICYCLOMINE HCL 10 MG CAPSULE PO PRN (21:00)
[2018-09-11] MEDS ORDERED: cloNIDine HCL 0.1 MG TABLET PO PRN (21:00)
[2018-09-11] MEDS ORDERED: MAG HYDROX/AL HYDROX/SIMETH 30 ML UNIT-DOSE CUP PO PRN (21:00)
[2018-09-11] MEDS ORDERED: ACETAMINOPHEN 325 MG TABLET (FP) PO PRN (21:00)
[2018-09-11] MEDS ORDERED: MAGNESIUM HYDROX 2400MG/30ML ORAL SUSPENSION 30 ML CUP PO PRN (21:00)
[2018-09-11] MEDS ORDERED: NICOTINE POLACRILEX 2 MG GUM BUC PRN (21:00)
[2018-09-11] MEDS ORDERED: METHOCARBAMOL 500 MG TABLET PO PRN (21:00)
[2018-09-11] MEDS ORDERED: P-EPHED 60MG/TRIPROLIDI 2.5MG TABLET PO PRN (21:00)
[2018-09-11] MEDS ORDERED: MENTHOL/PHENOL 1 EACH UD MM PRN (21:00)
[2018-09-11] MEDS ORDERED: IBUPROFEN 400 MG TABLET (FP) PO PRN (21:00)
[2018-09-11] MEDS: INSULIN (NOVOLOG MIX 70/30) 100 UNITS/ML MDV SQ SCH (22:38)
[2018-09-11] MEDS: THIAMINE HCL 100 MG TABLET (FP) PO SCH (22:39)
[2018-09-11] MEDS: hydrOXYzine PAMOATE 25 MG CAPSULE (FP) PO PRN (22:39)
[2018-09-11] MEDS ORDERED: METHADONE HCL 10 MG TABLET (FOR DETOX USE ONLY) PO ONE (23:00)
[2018-09-11 23:48] LABS: URINE APPEARANCE SLCLOUDY; URINE BILIRUBIN NEGATIVE (<2.0 mg/dL); URINE COLOR YELLOW; URINE GLUCOSE (UA) 3+ (NEGATIVE); URINE KETONE TRACE (NEGATIVE); URINE LEUK ESTERASE 2+ (NEGATIVE); URINE NITRITE NEGATIVE (NEGATIVE); URINE PROTEIN 3+ (NEGATIVE)
[2018-09-12 00:15] LABS: EPI CELLS RARE /HPF (FEW); URINE MUCUS RARE
[2018-09-12] MEDS: metFORMIN HCL 500 MG TABLET (FP) PO SCH ×2 (07:16→17:44)
[2018-09-12] MEDS: INSULIN (NOVOLOG MIX 70/30) 100 UNITS/ML MDV SQ SCH ×2 (07:17→21:37)
[2018-09-12] MEDS ORDERED: METHADONE HCL 10 MG TABLET (FOR DETOX USE ONLY) PO ONE ×2 (10:00)
[2018-09-12 10:22] LABS: HEMATOCRIT 40.2 % (35.4-49); HEMOGLOBIN 13.8 GM/dL (11.7-16.9); MCH 34.6 pg (25.7-33.7); MCHC 34.5 g/dl (32.0-35.9); MEAN CELL VOLUME 100.3 fl (80-96); MEAN PLT VOLUME 10.4 fl (7.5-11.1); PLATELET COUNT 197 K/MM3 (134-434); RDW 13.8 % (11.9-15.9); WHITE BLOOD COUNT 7.1 K/mm3 (4.0-10.0)
[2018-09-12] MEDS: PRENATAL VITAMINS W/ FOLIC ACID TABLET (FP) PO SCH (10:24)
[2018-09-12] MEDS: NICOTINE 21 MG/24 HOURS TOPICAL PATCH TD SCH (10:25)
[2018-09-12 10:51] LABS: ALBUMIN 2.6 g/dl (3.4-5.0); ALK PHOS 151 U/L (45-117); ANION GAP 6 MMOL/L (8-16); BILIRUBIN,TOTAL 0.8 mg/dL (0.2-1); BLOOD UREA NITROGEN 8 mg/dL (7-18); CALCIUM 8.3 mg/dL (8.5-10.1); CHLORIDE 103 mmol/L (98-107); CO2 28 mmol/L (21-32); CREATININE 0.8 mg/dL (0.55-1.3); GLUCOSE,RANDOM 98 mg/dL (74-106); SGOT/AST 33 U/L (15-37); SGPT/ALT 33 U/L (13-61); SODIUM 138 mmol/L (136-145); TOT PROT 6.5 g/dl (6.4-8.2)
--- NOTE | 2018-09-12 17:04 | PN ---
[facility] CIWA - CIWA Score Nausea/Vomitin Muscle Tremors: 2 Anxiety: 0-No Anxiety, at Ease Agitation: 0-Normal Activity Paroxysmal Sweats: 2 Orientation: 0-Oriented Tacttile Disturbances: 2-Mild Itch/Numbness/Burn Auditory Disturbances: 0-None Visual Disturbances: 2-Mild Sensitivity Headache: 0-None Present CIWA-Ar Total Score: 10 S COWS - Scale Resting Pulse: 0= [place] 80 or Below Sweatin= Chills/Flushing Restless Observation: 1= Difficult to Sit Still Pupil Size: 0= Normal to Room Light [facility] Progress Note (SOAP) Subjective: Nausea, Sweating. Objective: PATIENT A & O X 3, OBSERVED AMBULATING ON UNIT. IN NO ACUTE DISTRESS. 09/12/18 17:05 Vital Signs Temperature 98.4 F 09/12/18 13:54 Pulse Rate 75 09/12/18 13:54 Respiratory Rate 16 09/12/18 13:54 Blood Pressure 122/80 09/12/18 13:54 O2 Sat by Pulse Oximetry (%) Laboratory Tests 09/11/18 09/11/18 09/11/18 22:33 23:17 23:36 WBC RBC Hgb Hct MCV MCH MCHC RDW Plt Count MPV Sodium Potassium Chloride Carbon Dioxide Anion Gap BUN Creatinine Creat Clearance w eGFR POC Glucometer 520 394 Random Glucose Calcium Total Bilirubin AST ALT Alkaline Phosphatase Total Protein Albumin Urine Color Yellow Urine Appearance Slcloudy Urine pH 6.0 Ur Specific [place] 1.039 H Urine Protein 3+ H Urine Glucose (UA) 3+ H Urine Ketones Trace H Urine Blood 1+ H Urine Nitrite Negative Urine Bilirubin Negative Urine Urobilinogen 2.0 Ur Leukocyte Esterase 2+ H Urine WBC (Auto) 35 Urine RBC (Auto) 42 Ur Epithelial Cells Rare Urine Mucus Rare RPR Titer 09/12/18 09/12/18 09/12/18 05:19 07:00 07:00 WBC 7.1 RBC 4.00 Hgb 13.8 Hct 40.2 MCV 100.3 H MCH 34.6 H MCHC 34.5 RDW 13.8 Plt Count 197 MPV 10.4 Sodium 138 Potassium 4.0 Chloride 103 Carbon Dioxide 28 Anion Gap 6 L BUN 8 Creatinine 0.8 Creat Clearance w eGFR > 60 POC Glucometer 133 Random Glucose 98 Calcium 8.3 L Total Bilirubin 0.8 AST 33 ALT 33 Alkaline Phosphatase 151 H Total Protein 6.5 Albumin 2.6 L Urine Color Urine Appearance Urine pH Ur Specific [place] Urine Protein Urine Glucose (UA) Urine Ketones Urine Blood Urine Nitrite Urine Bilirubin Urine Urobilinogen Ur Leukocyte Esterase Urine WBC (Auto) Urine RBC (Auto) Ur Epithelial Cells Urine Mucus RPR Titer 09/12/18 09/12/18 09/12/18 07:00 11:50 13:26 WBC RBC Hgb Hct MCV MCH MCHC RDW Plt Count MPV Sodium Potassium Chloride Carbon Dioxide Anion Gap BUN Creatinine Creat Clearance w eGFR POC Glucometer 63 106 Random Glucose Calcium Total Bilirubin AST ALT Alkaline Phosphatase Total Protein Albumin Urine Color Urine Appearance Urine pH Ur Specific [place] Urine Protein Urine Glucose (UA) Urine Ketones Urine Blood Urine Nitrite Urine Bilirubin Urine Urobilinogen Ur Leukocyte Esterase Urine WBC (Auto) Urine RBC (Auto) Ur Epithelial Cells Urine Mucus RPR Titer Nonreactive 09/12/18 16:25 WBC RBC Hgb Hct MCV MCH MCHC RDW Plt Count MPV Sodium Potassium Chloride Carbon Dioxide Anion Gap BUN Creatinine Creat Clearance w eGFR POC Glucometer 67 Random Glucose Calcium Total Bilirubin AST ALT Alkaline Phosphatase Total Protein Albumin Urine Color Urine Appearance Urine pH Ur Specific [place] Urine Protein Urine Glucose (UA) Urine Ketones Urine Blood Urine Nitrite Urine Bilirubin Urine Urobilinogen Ur Leukocyte Esterase Urine WBC (Auto) Urine RBC (Auto) Ur Epithelial Cells Urine Mucus RPR Titer LABS NOTED. Assessment: 09/12/18 17:05 WITHDRAWAL SYMPTOMS. Plan: CONTINUE DETOX. INCREASE DAILY PO FLUID INTAKE. REPEAT UA FOR ADMISSION ABNORMALITIES.
[2018-09-12] MEDS: THIAMINE HCL 100 MG TABLET (FP) PO SCH (22:25)
[2018-09-12] MEDS: hydrOXYzine PAMOATE 25 MG CAPSULE (FP) PO PRN (22:25)
[2018-09-13] MEDS: metFORMIN HCL 500 MG TABLET (FP) PO SCH ×2 (06:27→17:24)
[2018-09-13] MEDS: INSULIN (NOVOLOG MIX 70/30) 100 UNITS/ML MDV SQ SCH ×2 (06:55→21:44)
[2018-09-13] MEDS ORDERED: METHADONE HCL 5 MG TABLET (FOR DETOX USE ONLY) PO ONE (10:00)
[2018-09-13] MEDS: PRENATAL VITAMINS W/ FOLIC ACID TABLET (FP) PO SCH (10:12)
[2018-09-13] MEDS: NICOTINE 21 MG/24 HOURS TOPICAL PATCH TD SCH (10:12)
--- NOTE | 2018-09-13 12:24 | PN ---
BHS COWS - Scale Resting Pulse: 0= TN 80 or Below Sweatin=Flushed/Facial Moisture Restless Observation: 1= Difficult to Sit Still Pupil Size: 0= Normal to Room Light Bone or Joint Aches: 0= None Runny Nose/ Eye Tearin= Runny Nose/Eyes GI Upset > 30mins: 0= None Tremor Observation of Outstretched Hands: 0= None Yawning Observation: 1= 1-2x During Session Anxiety or Irritability: 2=Irritable/Anxious Goose Flesh Skin: 0=Smooth Skin COWS Score: 8 BHS Progress Note (SOAP) Subjective: Fatigue, Runny Nose, Anxious, Chills. Objective: PATIENT A & O X 3, OBSERVED AMBULATING ON UNIT. IN NO ACUTE DISTRESS. 09/13/18 12:20 Vital Signs Temperature 96.7 F L 09/13/18 09:05 Pulse Rate 61 09/13/18 09:05 Respiratory Rate 18 09/13/18 09:05 Blood Pressure 127/84 09/13/18 09:05 O2 Sat by Pulse Oximetry (%) Laboratory Tests 09/11/18 09/11/18 09/11/18 22:33 23:17 23:36 WBC RBC Hgb Hct MCV MCH MCHC RDW Plt Count MPV Sodium Potassium Chloride Carbon Dioxide Anion Gap BUN Creatinine Creat Clearance w eGFR POC Glucometer 520 394 Random Glucose Calcium Total Bilirubin AST ALT Alkaline Phosphatase Total Protein Albumin Urine Color Yellow Urine Appearance Slcloudy Urine pH 6.0 Ur Specific [place] 1.039 H Urine Protein 3+ H Urine Glucose (UA) 3+ H Urine Ketones Trace H Urine Blood 1+ H Urine Nitrite Negative Urine Bilirubin Negative Urine Urobilinogen 2.0 Ur Leukocyte Esterase 2+ H Urine WBC (Auto) 35 Urine RBC (Auto) 42 Ur Epithelial Cells Rare Urine Mucus Rare RPR Titer 09/12/18 09/12/18 09/12/18 05:19 07:00 07:00 WBC 7.1 RBC 4.00 Hgb 13.8 Hct 40.2 MCV 100.3 H MCH 34.6 H MCHC 34.5 RDW 13.8 Plt Count 197 MPV 10.4 Sodium 138 Potassium 4.0 Chloride 103 Carbon Dioxide 28 Anion Gap 6 L BUN 8 Creatinine 0.8 Creat Clearance w eGFR > 60 POC Glucometer 133 Random Glucose 98 Calcium 8.3 L Total Bilirubin 0.8 AST 33 ALT 33 Alkaline Phosphatase 151 H Total Protein 6.5 Albumin 2.6 L Urine Color Urine Appearance Urine pH Ur Specific [place] Urine Protein Urine Glucose (UA) Urine Ketones Urine Blood Urine Nitrite Urine Bilirubin Urine Urobilinogen Ur Leukocyte Esterase Urine WBC (Auto) Urine RBC (Auto) Ur Epithelial Cells Urine Mucus RPR Titer 09/12/18 09/12/18 09/12/18 07:00 11:50 13:26 WBC RBC Hgb Hct MCV MCH MCHC RDW Plt Count MPV Sodium Potassium Chloride Carbon Dioxide Anion Gap BUN Creatinine Creat Clearance w eGFR POC Glucometer 63 106 Random Glucose Calcium Total Bilirubin AST ALT Alkaline Phosphatase Total Protein Albumin Urine Color Urine Appearance Urine pH Ur Specific [place] Urine Protein Urine Glucose (UA) Urine Ketones Urine Blood Urine Nitrite Urine Bilirubin Urine Urobilinogen Ur Leukocyte Esterase Urine WBC (Auto) Urine RBC (Auto) Ur Epithelial Cells Urine Mucus RPR Titer Nonreactive 09/12/18 09/12/18 09/13/18 16:25 21:04 05:21 WBC RBC Hgb Hct MCV MCH MCHC RDW Plt Count MPV Sodium Potassium Chloride Carbon Dioxide Anion Gap BUN Creatinine Creat Clearance w eGFR POC Glucometer 67 85 158 Random Glucose Calcium Total Bilirubin AST ALT Alkaline Phosphatase Total Protein Albumin Urine Color Urine Appearance Urine pH Ur Specific [place] Urine Protein Urine Glucose (UA) Urine Ketones Urine Blood Urine Nitrite Urine Bilirubin Urine Urobilinogen Ur Leukocyte Esterase Urine WBC (Auto) Urine RBC (Auto) Ur Epithelial Cells Urine Mucus RPR Titer 09/13/18 11:47 WBC RBC Hgb Hct MCV MCH MCHC RDW Plt Count MPV Sodium Potassium Chloride Carbon Dioxide Anion Gap BUN Creatinine Creat Clearance w eGFR POC Glucometer 450 Random Glucose Calcium Total Bilirubin AST ALT Alkaline Phosphatase Total Protein Albumin Urine Color Urine Appearance Urine pH Ur Specific [place] Urine Protein Urine Glucose (UA) Urine Ketones Urine Blood Urine Nitrite Urine Bilirubin Urine Urobilinogen Ur Leukocyte Esterase Urine WBC (Auto) Urine RBC (Auto) Ur Epithelial Cells Urine Mucus RPR Titer LABS NOTED. BGM @ 11:47 NOTED TO BE 450. REGULARLY SCHEDULED AM DOSE OF INSULIN (NOVOLOG 70/ 30) 40 UNITS HELD IN AM BY COVERING MEDICAL PROVIDER. PATIENT REPORTS DISCOMFORT WHEN URINATING FOR LAST APPROX. 1 WEEK. RESULTS OF REPEAT UA PENDING. 09/13/18 12:21 Assessment: 09/13/18 12:21 WITHDRAWAL SYMPTOMS. HYPERGLYCEMIA. Plan: CONTINUE DETOX. INCREASE DAILY PO FLUID INTAKE. STAT DOSE OF INSULIN (NOVOLOG 70/30) 40 UNITS ORDERED. CONTINUE TO MONITOR BGM FOR EFFECT.
[2018-09-13] MEDS ORDERED: INSULIN (NOVOLOG MIX 70/30) 100 UNITS/ML MDV SQ ONE (12:30)
[2018-09-13 20:32] LABS: URINE APPEARANCE CLEAR; URINE BILIRUBIN NEGATIVE (<2.0 mg/dL); URINE COLOR STRAW; URINE GLUCOSE (UA) NEGATIVE (NEGATIVE); URINE KETONE NEGATIVE (NEGATIVE); URINE LEUK ESTERASE NEGATIVE (NEGATIVE); URINE NITRITE NEGATIVE (NEGATIVE); URINE PROTEIN 1+ (NEGATIVE); URINE UROBILINOGEN NEGATIVE mg/dL (0.2-1.0)
[2018-09-13 20:51] LABS: EPI CELLS RARE /HPF (FEW)
[2018-09-13] MEDS: THIAMINE HCL 100 MG TABLET (FP) PO SCH (22:05)
[2018-09-13] MEDS: hydrOXYzine PAMOATE 25 MG CAPSULE (FP) PO PRN (22:05)
[2018-09-14] MEDS: metFORMIN HCL 500 MG TABLET (FP) PO SCH ×2 (08:34→16:39)
[2018-09-14] MEDS: INSULIN (NOVOLOG MIX 70/30) 100 UNITS/ML MDV SQ SCH ×2 (08:35→22:19)
[2018-09-14] MEDS: PRENATAL VITAMINS W/ FOLIC ACID TABLET (FP) PO SCH (09:43)
[2018-09-14] MEDS: hydrOXYzine PAMOATE 25 MG CAPSULE (FP) PO PRN ×3 (09:44→22:21)
[2018-09-14] MEDS: NICOTINE 21 MG/24 HOURS TOPICAL PATCH TD SCH (09:44)
[2018-09-14] MEDS ORDERED: METHADONE HCL 10 MG TABLET (FOR DETOX USE ONLY) PO ONE (10:00)
--- NOTE | 2018-09-14 14:16 | PN ---
BHS Progress Note (SOAP) Subjective: Chills, Anxious, Sweating. Objective: PATIENT A & O X 3, OBSERVED AMBULATING ON UNIT. IN NO ACUTE DISTRESS. 09/14/18 14:13 Vital Signs Temperature 98.9 F 09/14/18 13:49 Pulse Rate 77 09/14/18 13:49 Respiratory Rate 18 09/14/18 13:49 Blood Pressure 125/77 09/14/18 13:49 O2 Sat by Pulse Oximetry (%) Laboratory Tests 09/11/18 09/11/18 09/11/18 22:33 23:17 23:36 WBC RBC Hgb Hct MCV MCH MCHC RDW Plt Count MPV Sodium Potassium Chloride Carbon Dioxide Anion Gap BUN Creatinine Creat Clearance w eGFR POC Glucometer 520 394 Random Glucose Calcium Total Bilirubin AST ALT Alkaline Phosphatase Total Protein Albumin Urine Color Yellow Urine Appearance Slcloudy Urine pH 6.0 Ur Specific [place] 1.039 H Urine Protein 3+ H Urine Glucose (UA) 3+ H Urine Ketones Trace H Urine Blood 1+ H Urine Nitrite Negative Urine Bilirubin Negative Urine Urobilinogen 2.0 Ur Leukocyte Esterase 2+ H Urine WBC (Auto) 35 Urine RBC (Auto) 42 Ur Epithelial Cells Rare Urine Mucus Rare RPR Titer 09/12/18 09/12/18 09/12/18 05:19 07:00 07:00 WBC 7.1 RBC 4.00 Hgb 13.8 Hct 40.2 MCV 100.3 H MCH 34.6 H MCHC 34.5 RDW 13.8 Plt Count 197 MPV 10.4 Sodium 138 Potassium 4.0 Chloride 103 Carbon Dioxide 28 Anion Gap 6 L BUN 8 Creatinine 0.8 Creat Clearance w eGFR > 60 POC Glucometer 133 Random Glucose 98 Calcium 8.3 L Total Bilirubin 0.8 AST 33 ALT 33 Alkaline Phosphatase 151 H Total Protein 6.5 Albumin 2.6 L Urine Color Urine Appearance Urine pH Ur Specific [place] Urine Protein Urine Glucose (UA) Urine Ketones Urine Blood Urine Nitrite Urine Bilirubin Urine Urobilinogen Ur Leukocyte Esterase Urine WBC (Auto) Urine RBC (Auto) Ur Epithelial Cells Urine Mucus RPR Titer 09/12/18 09/12/18 09/12/18 07:00 11:50 13:26 WBC RBC Hgb Hct MCV MCH MCHC RDW Plt Count MPV Sodium Potassium Chloride Carbon Dioxide Anion Gap BUN Creatinine Creat Clearance w eGFR POC Glucometer 63 106 Random Glucose Calcium Total Bilirubin AST ALT Alkaline Phosphatase Total Protein Albumin Urine Color Urine Appearance Urine pH Ur Specific [place] Urine Protein Urine Glucose (UA) Urine Ketones Urine Blood Urine Nitrite Urine Bilirubin Urine Urobilinogen Ur Leukocyte Esterase Urine WBC (Auto) Urine RBC (Auto) Ur Epithelial Cells Urine Mucus RPR Titer Nonreactive 09/12/18 09/12/18 09/13/18 16:25 21:04 05:21 WBC RBC Hgb Hct MCV MCH MCHC RDW Plt Count MPV Sodium Potassium Chloride Carbon Dioxide Anion Gap BUN Creatinine Creat Clearance w eGFR POC Glucometer 67 85 158 Random Glucose Calcium Total Bilirubin AST ALT Alkaline Phosphatase Total Protein Albumin Urine Color Urine Appearance Urine pH Ur Specific [place] Urine Protein Urine Glucose (UA) Urine Ketones Urine Blood Urine Nitrite Urine Bilirubin Urine Urobilinogen Ur Leukocyte Esterase Urine WBC (Auto) Urine RBC (Auto) Ur Epithelial Cells Urine Mucus RPR Titer 09/13/18 09/13/18 09/13/18 11:47 16:42 19:11 WBC RBC Hgb Hct MCV MCH MCHC RDW Plt Count MPV Sodium Potassium Chloride Carbon Dioxide Anion Gap BUN Creatinine Creat Clearance w eGFR POC Glucometer 450 213 Random Glucose Calcium Total Bilirubin AST ALT Alkaline Phosphatase Total Protein Albumin Urine Color Straw Urine Appearance Clear Urine pH 7.0 Ur Specific [place] 1.006 L Urine Protein 1+ H D Urine Glucose (UA) Negative Urine Ketones Negative Urine Blood Negative Urine Nitrite Negative Urine Bilirubin Negative Urine Urobilinogen Negative Ur Leukocyte Esterase Negative Urine WBC (Auto) 1 Urine RBC (Auto) <1 Ur Epithelial Cells Rare Urine Mucus RPR Titer 09/13/18 09/14/18 09/14/18 21:21 05:26 12:14 WBC RBC Hgb Hct MCV MCH MCHC RDW Plt Count MPV Sodium Potassium Chloride Carbon Dioxide Anion Gap BUN Creatinine Creat Clearance w eGFR POC Glucometer 99 112 209 Random Glucose Calcium Total Bilirubin AST ALT Alkaline Phosphatase Total Protein Albumin Urine Color Urine Appearance Urine pH Ur Specific [place] Urine Protein Urine Glucose (UA) Urine Ketones Urine Blood Urine Nitrite Urine Bilirubin Urine Urobilinogen Ur Leukocyte Esterase Urine WBC (Auto) Urine RBC (Auto) Ur Epithelial Cells Urine Mucus RPR Titer LABS NOTED. RESULTS OF REPEAT UA NOTED. 09/14/18 14:14 Assessment: 09/14/18 14:14 WITHDRAWAL SYMPTOMS. Plan: CONTINUE DETOX. PATIENT REPORTS THAT DISCOMFORT THAT SOMETIMES OCCURS WHEN URINATING HAS IMPROVED SOMEWHAT SINCE YESTERDAY. BASED UPON RESULTS OF REPEAT UA, NO NEED FIR FURTHER ACTION AT THIS TIME. PATIENT ENCOURAGED TO INCREASE DAILY PO FLUID INTAKE. PATIENT SCHEDULED FOR D/C TOMORROW AM.
--- NOTE | 2018-09-14 17:02 | PN ---
[facility] Progress Note Note: is 493 will give novolog 10 unit sq now,bgm monitoring,
[2018-09-14] MEDS ORDERED: INSULIN (NOVOLOG) ASPART 100 UNITS/ML 10ML VIAL SQ ONE (17:15)
[2018-09-14] MEDS ORDERED: INSULIN SLIDING SCALE (NOVOLOG) 1 VIAL SQ ONE (17:48)
[2018-09-14] MEDS: THIAMINE HCL 100 MG TABLET (FP) PO SCH (22:20)
[2018-09-15] MEDS ORDERED: METHADONE HCL 5 MG TABLET (FOR DETOX USE ONLY) PO ONE (06:00)
[2018-09-15] MEDS: metFORMIN HCL 500 MG TABLET (FP) PO SCH (08:01)
[2018-09-15] MEDS: INSULIN (NOVOLOG MIX 70/30) 100 UNITS/ML MDV SQ SCH (08:01)
[2018-09-15] MEDS ORDERED: INSULIN (NOVOLOG MIX 70/30) 100 UNITS/ML MDV SQ ONE (08:05)
[2018-09-15 09:31] VITALS: BP 135/81; PULSE 84; TEMP 97.3
--- NOTE | 2018-09-15 09:50 | DS ---
[facility] Detox Discharge Summary Admission Date: 09/11/18 Discharge Date: 09/15/18 - History Present History: Opioid Dependence Additional Comments: 32 years old male admitted on 09/11/18 for opiate withdrawal stabilization completed detox regimen aftercare [facility] patient preferred return to infectious disease specialist for medical mental issues last 30 days medication filled on 09/05/18 Pertinent Past History: keep medication list in wallet bring in medication list and bottles of medication to aftercare appointment update medication list when change medication medication adherence - Physical Exam Results Vital Signs: Vital Signs Temperature 97.3 F L 09/15/18 09:30 Pulse Rate 84 09/15/18 09:30 Respiratory Rate 18 09/15/18 09:30 Blood Pressure 135/81 09/15/18 09:30 O2 Sat by Pulse Oximetry (%) Pertinent Admission Physical Exam Findings: opiate withdrawal sx Laboratory Last Values WBC 7.1 K/mm3 (4.0-10.0) 09/12/18 07:00 RBC 4.00 M/mm3 (4.00-5.60) 09/12/18 07:00 Hgb 13.8 GM/dL (11.7-16.9) 09/12/18 07:00 Hct 40.2 % (35.4-49) 09/12/18 07:00 MCV 100.3 fl (80-96) H 09/12/18 07:00 MCH 34.6 pg (25.7-33.7) H 09/12/18 07:00 MCHC 34.5 g/dl (32.0-35.9) 09/12/18 07:00 RDW 13.8 % (11.9-15.9) 09/12/18 07:00 Plt Count 197 K/MM3 (134-434) 09/12/18 07:00 MPV 10.4 fl (7.5-11.1) 09/12/18 07:00 Sodium 138 mmol/L (136-145) 09/12/18 07:00 Potassium 4.0 mmol/L (3.5-5.1) 09/12/18 07:00 Chloride 103 mmol/L (98-107) 09/12/18 07:00 Carbon Dioxide 28 mmol/L (21-32) 09/12/18 07:00 Anion Gap 6 MMOL/L (8-16) L 09/12/18 07:00 BUN 8 mg/dL (7-18) 09/12/18 07:00 Creatinine 0.8 mg/dL (0.55-1.3) 09/12/18 07:00 Creat Clearance w eGFR > 60 (>60) 09/12/18 07:00 POC Glucometer 154 UNITS (80-120) 09/15/18 05:23 Random Glucose 98 mg/dL (74-106) 09/12/18 07:00 Calcium 8.3 mg/dL (8.5-10.1) L 09/12/18 07:00 Total Bilirubin 0.8 mg/dL (0.2-1) 09/12/18 07:00 AST 33 U/L (15-37) 09/12/18 07:00 ALT 33 U/L (13-61) 09/12/18 07:00 Alkaline Phosphatase 151 U/L (45-117) H 09/12/18 07:00 Total Protein 6.5 g/dl (6.4-8.2) 09/12/18 07:00 Albumin 2.6 g/dl (3.4-5.0) L 09/12/18 07:00 Urine Color Straw 09/13/18 19:11 Urine Appearance Clear 09/13/18 19:11 Urine pH 7.0 (5.0-8.0) 09/13/18 19:11 Ur Specific [place] 1.006 (1.010-1.035) L 09/13/18 19:11 Urine Protein 1+ (NEGATIVE) H D 09/13/18 19:11 Urine Glucose (UA) Negative (NEGATIVE) 09/13/18 19:11 Urine Ketones Negative (NEGATIVE) 09/13/18 19:11 Urine Blood Negative (NEGATIVE) 09/13/18 19:11 Urine Nitrite Negative (NEGATIVE) 09/13/18 19:11 Urine Bilirubin Negative (<2.0 mg/dL) 09/13/18 19:11 Urine Urobilinogen Negative mg/dL (0.2-1.0) 09/13/18 19:11 Ur Leukocyte Esterase Negative (NEGATIVE) 09/13/18 19:11 Urine WBC (Auto) 1 /hpf (3-5) 09/13/18 19:11 Urine RBC (Auto) <1 /hpf (0-3) 09/13/18 19:11 Ur Epithelial Cells Rare /HPF (FEW) 09/13/18 19:11 Urine Mucus Rare 09/11/18 23:17 RPR Titer Nonreactive (NONREACTIVE) 09/12/18 07:00 lab noted - Treatment Hospital Course: Detox Protocol Followed, Detoxed Safely, Responded well, Discharged Condition Good, Rehab Referral Accepted Patient has Accepted a Rehab Referral to: [facility] - Medication Discharge Medications: Ambulatory Orders Insulin (Novolog 70/30) [Novolog Mix 70/30 Vial -] 10 units SQ HS 08/21/18 Insulin (Novolog 70/30) [Novolog Mix 70/30 Vial -] 40 units SQ AM 08/21/18 Metformin HCl [Glucophage] 500 mg PO BID 08/21/18 - Diagnosis (1) Opioid dependence with withdrawal Current Visit: Yes Status: Acute (2) Weight loss Current Visit: Yes Status: Acute (3) HIV (human immunodeficiency virus infection) Current Visit: Yes Status: Chronic Qualifiers: HIV symptom status: asymptomatic Qualified Code(s): Z21 - Asymptomatic human immunodeficiency virus [HIV] infection status (4) IDDM (insulin dependent diabetes mellitus) Current Visit: Yes Status: Chronic (5) Nicotine dependence Current Visit: Yes Status: Acute Qualifiers: Nicotine product type: cigarettes Substance use status: in withdrawal Qualified Code(s): F17.213 - Nicotine dependence, cigarettes, with withdrawal (6) Substance induced mood disorder Current Visit: Yes Status: Suspected - AMA Did Patient Leave Against Medical Advice: No
== END 2018-09-15 09:10 | disposition home or self-care (01) | DRG 773 ==
LOC: YASAS 11:23 → Y3N 21:05
PROVIDERS: ADMIT Surgery; ATTEND Surgery
PROC: HZ2ZZZZ Detoxification Services for Substance Abuse Treatment (ICD-10-PCS; principal; 2018-09-11)
DX: F11.23 Opioid dependence with withdrawal (principal); F17.213 Nicotine dependence, cigarettes, with withdrawal; F19.282 Other psychoactive substance dependence with psychoactive substance-induced sleep disorder; F19.24 Other psychoactive substance dependence with psychoactive substance-induced mood disorder; F31.9 Bipolar disorder, unspecified; F41.8 Other specified anxiety disorders; Z21 Asymptomatic human immunodeficiency virus [HIV] infection status; E10.65 Type 1 diabetes mellitus with hyperglycemia; Z79.4 Long term (current) use of insulin; R63.4 Abnormal weight loss; Z68.21 Body mass index [BMI] 21.0-21.9, adult
CPT/HCPCS: 36415; 80053; 81003; 81015; 82962; 85027; 86593

== ENCOUNTER 2018-09-16 08:23 | Inpatient (IN) | payer OTHER ==
[2018-09-16 09:25] VITALS: BMI 22.2
--- NOTE | 2018-09-16 09:30 | HP ---
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 09/11/18 to 09/05/18 at [facility],iddm,hiv,bipolar disorder,. would like to be admitted for rehab,non compliance in the past due to illness. in the family,seen by counselor,. promise and ready to move on with rehab, verbal contract. and motivate to move on with his life. for rehave as protocol Inpatient Rehab Admission - Rehab Decision to Admit Inpatient rehab admission?: Yes - Initial Determination Are CD services needed?: Yes Free of communicable disease: Yes Not in need of hospitalization: Yes - Rehab Admission Criteria Previous failed treatment: Yes Poor recovery environment: Yes Comorbidities: Yes Lacks judgement: No Patient is meeting Inpatient Rehab admission criteria:: Yes
[2018-09-16] MEDS ORDERED: MAG HYDROX/AL HYDROX/SIMETH 30 ML UNIT-DOSE CUP PO PRN (09:31)
[2018-09-16] MEDS ORDERED: MAGNESIUM HYDROX 2400MG/30ML ORAL SUSPENSION 30 ML CUP PO PRN (09:31)
[2018-09-16] MEDS ORDERED: MENTHOL/PHENOL 1 EACH UD MM PRN (09:31)
[2018-09-16] MEDS ORDERED: MAGNESIUM CITRATE 300 ML BOTTLE PO PRN (09:31)
[2018-09-16] MEDS ORDERED: guaiFENesin 200 MG/10 ML 10 ML UNIT-DOSE CUPS PO PRN (09:31)
[2018-09-16] MEDS ORDERED: IBUPROFEN 400 MG TABLET (FP) PO PRN (09:31)
[2018-09-16] MEDS ORDERED: P-EPHED 60MG/TRIPROLIDI 2.5MG TABLET PO PRN (09:31)
[2018-09-16] MEDS ORDERED: LOPERAMIDE HCL 2 MG CAPSULE PO PRN (09:31)
[2018-09-16] MEDS ORDERED: ACETAMINOPHEN 325 MG TABLET (FP) PO PRN (09:31)
[2018-09-16] MEDS ORDERED: INSULIN (NOVOLOG) ASPART 100 UNITS/ML 10ML VIAL SQ ONE ×2 (09:49→17:15)
[2018-09-16] MEDS: PRENATAL VITAMINS W/ FOLIC ACID TABLET (FP) PO SCH (11:06)
[2018-09-16] MEDS: metFORMIN HCL 500 MG TABLET (FP) PO SCH ×2 (11:09→16:40)
[2018-09-16] MEDS: hydrOXYzine PAMOATE 50 MG CAPSULE (FP) PO PRN ×2 (11:24→21:51)
--- NOTE | 2018-09-16 16:59 | PN ---
S Progress Note Note: Vital Signs Temperature 97.6 F 09/16/18 11:30 Pulse Rate 83 09/16/18 11:30 Respiratory Rate 18 09/16/18 11:30 Blood Pressure 123/74 09/16/18 11:30 O2 Sat by Pulse Oximetry (%) Laboratory Last Values POC Glucometer 339 UNITS (80-120) 09/16/18 16:39 Patient asymptomatic, novolog 6 units ordered. Increase PO fluids. Continue to monitor
[2018-09-16] MEDS ORDERED: INSULIN (NOVOLOG MIX 70/30) 100 UNITS/ML MDV SQ SCH (22:00)
[2018-09-16] MEDS ORDERED: MELATONIN 5 MG TABLETS PO PRN (22:00)
[2018-09-16] MEDS ORDERED: THIAMINE HCL 100 MG TABLET (FP) PO SCH (22:00)
[2018-09-17 00:07] LABS: URINE APPEARANCE CLOUDY; URINE BILIRUBIN NEGATIVE (<2.0 mg/dL); URINE COLOR LTYELLOW; URINE GLUCOSE (UA) 3+ (NEGATIVE); URINE KETONE NEGATIVE (NEGATIVE); URINE LEUK ESTERASE NEGATIVE (NEGATIVE); URINE NITRITE NEGATIVE (NEGATIVE); URINE PROTEIN 1+ (NEGATIVE); URINE UROBILINOGEN NEGATIVE mg/dL (0.2-1.0)
[2018-09-17 00:19] LABS: EPI CELLS RARE /HPF (FEW); URINE MUCUS RARE; YEAST MODERATE
[2018-09-17 06:53] VITALS: BP 139/82; PULSE 72; TEMP 97.8
[2018-09-17] MEDS ORDERED: INSULIN (NOVOLOG MIX 70/30) 100 UNITS/ML MDV SQ SCH ×3 (07:00→16:30)
[2018-09-17] MEDS: metFORMIN HCL 500 MG TABLET (FP) PO SCH ×2 (07:05→17:29)
--- NOTE | 2018-09-17 10:50 | PN ---
S Progress Note Note: PT C/O DIAPHORESIS AND POSSIBLE LOW BLOOD SUGAR TO NURSE ANTONIO. PT REPORTS HE HAD STOMACH DISCOMFORT THIS MORNING AND DID NOT EAT MUCH OF HIS BREAKFAST. HX DM ON INSULIN, LAST RECEIVED THIS MORNING BEFORE BREAKFAST. PT IS ALERT O X 3. DENIES LOC. NAUSEA OR VOMITING. SPOKE TO PT'S PHARMACY AT [facility] WHO VERIFIED PT IS ON CURRENT INSULIN DOSES AND METFORMIN BELOW EXCEPT INSULIN IS WITH DINNER AND NOT HS. REPORTS PT HAS A PMD DR. DIPAK SUMMERS AT [facility], [place], [place]. Home Medications Medication Instructions Recorded Insulin (Novolog 70/30) [Novolog 10 units SQ HS 08/21/18 Mix 70/30 Vial -] Insulin (Novolog 70/30) [Novolog 40 units SQ AM 08/21/18 Mix 70/30 Vial -] Metformin HCl [Glucophage] 500 mg PO BID 08/21/18 Vital Signs (72 hours) 09/16/18 09/16/18 09/17/18 09:21 11:30 00:30 Temperature 98.1 F 97.6 F Pulse Rate 85 83 Respiratory 20 18 18 Rate Blood Pressure 113/72 123/74 09/17/18 09/17/18 03:30 06:52 Temperature 97.8 F Pulse Rate 72 Respiratory 18 18 Rate Blood Pressure 139/82 Laboratory Tests 09/16/18 09/16/18 09/16/18 09:46 11:06 16:39 POC Glucometer 547 565 339 Urine Color Urine Appearance Urine pH Ur Specific [place] Urine Protein Urine Glucose (UA) Urine Ketones Urine Blood Urine Nitrite Urine Bilirubin Urine Urobilinogen Ur Leukocyte Esterase Urine WBC (Auto) Urine RBC (Auto) Ur Epithelial Cells Urine Mucus Urine Yeast 09/16/18 09/16/18 09/16/18 21:50 22:00 23:36 POC Glucometer 357 359 Urine Color Lty[place] Urine Appearance Cloudy Urine pH 5.0 D Ur Specific [place] 1.031 Urine Protein 1+ H Urine Glucose (UA) 3+ H Urine Ketones Negative Urine Blood Negative Urine Nitrite Negative Urine Bilirubin Negative Urine Urobilinogen Negative Ur Leukocyte Esterase Negative Urine WBC (Auto) 9 Urine RBC (Auto) 70 Ur Epithelial Cells Rare Urine Mucus Rare Urine Yeast Moderate 09/17/18 09/17/18 09/17/18 07:02 10:11 10:27 POC Glucometer 273 41 107 Urine Color Urine Appearance Urine pH Ur Specific [place] Urine Protein Urine Glucose (UA) Urine Ketones Urine Blood Urine Nitrite Urine Bilirubin Urine Urobilinogen Ur Leukocyte Esterase Urine WBC (Auto) Urine RBC (Auto) Ur Epithelial Cells Urine Mucus Urine Yeast NAD MEDICALLY STABLE PLAN:MONITOR BGM DIRECTED CHANGE EVENING INSULIN DOSE 10 UNITS TO DINNER TIME. MONITOR PT'S STATUS. INSTRUCTED PT TO INFORM STAFF IF EXPERIENCING DIFFICULTY.
[2018-09-17] MEDS: PRENATAL VITAMINS W/ FOLIC ACID TABLET (FP) PO SCH (10:53)
[2018-09-17] MEDS: hydrOXYzine PAMOATE 50 MG CAPSULE (FP) PO PRN ×2 (10:54→17:29)
--- NOTE | 2018-09-17 17:25 | PN ---
[facility] Progress Note Note: NOTIFIED BY RN PATIENT HAS BLOOD SUGAR OF 151. PATIENT SCHEDULED FOR INSULIN 70/ 30 AND GLUCOPHAGE. HAD EPISODE OF HYPOGLYCEMIA TODAY, WILL HOLD INSULIN AND CONTINUE WITH GLUCOPHAGE DOSE. Vital Signs Temperature 97.8 F 09/17/18 06:52 Pulse Rate 72 09/17/18 06:52 Respiratory Rate 18 09/17/18 06:52 Blood Pressure 139/82 09/17/18 06:52 O2 Sat by Pulse Oximetry (%)
--- NOTE | 2018-09-17 18:30 | PN ---
[facility] Progress Note Note: NOTIFIED BY RN THAT PATIENT REQUESTED TO SIGN OUT AMA. PATIENT STATED " I HAVE THINGS TO DO BEFORE THE WEEKEND". PATIENT ENCOURAGED TO STAY IN REHAB AND CONTINUE TREATMENT BY STAFF BUT PATIENT REFUSED. PATIENT DID NOT WANT TO SPEAK TO PROVIDER PRIOR TO SIGNING OUT AMA. INSTRUCTED BY STAFF RISK FACTORS INVOLVED WITH SIGNING OUT AMA. PATIENT CONTINUED WITH AMA PROCESS DESPITE STAFF INTERVENTIONS. EXTERNAL HX SHOWS RECENT PRESCRIPTIONS OF MEDICATION SENT TO PHARMACY ON 08/30/2018. Vital Signs Temperature 97.8 F 09/17/18 06:52 Pulse Rate 72 09/17/18 06:52 Respiratory Rate 18 09/17/18 06:52 Blood Pressure 139/82 09/17/18 06:52 O2 Sat by Pulse Oximetry (%)
[2018-09-18] MEDS ORDERED: INSULIN (NOVOLOG MIX 70/30) 100 UNITS/ML MDV SQ SCH ×2 (07:00)
== END 2018-09-17 18:11 | disposition left against medical advice (07) | DRG 770 ==
LOC: YASAS 08:23 → Y5N 09:27
PROVIDERS: ADMIT Neuromusculoskeletal Medicine & OMM; ATTEND Neuromusculoskeletal Medicine & OMM
PROC: HZ42ZZZ Group Counseling for Substance Abuse Treatment, Cognitive-Behavioral (ICD-10-PCS; principal; 2018-09-16)
DX: F11.20 Opioid dependence, uncomplicated (principal); F17.210 Nicotine dependence, cigarettes, uncomplicated; F31.9 Bipolar disorder, unspecified; F19.24 Other psychoactive substance dependence with psychoactive substance-induced mood disorder; F19.282 Other psychoactive substance dependence with psychoactive substance-induced sleep disorder; Z21 Asymptomatic human immunodeficiency virus [HIV] infection status; E11.65 Type 2 diabetes mellitus with hyperglycemia; R63.4 Abnormal weight loss; Z91.14 Patient's other noncompliance with medication regimen
CPT/HCPCS: 81003; 81015; 82962

== ENCOUNTER 2018-10-15 14:36 | Inpatient (IN) | payer OTHER ==
[2018-10-15 19:19] VITALS: BMI 20.8
--- NOTE | 2018-10-15 20:05 | HP ---
COWS - Scale Resting Pulse: 1= [place] 81-100 Sweatin= Chills/Flushing Restless Observation: 3= Extraneous Movement Pupil Size: 1= Pupils >than Normal Bone or Joint Aches: 2= Severe Diffuse Aches Runny Nose/ Eye Tearin= Runny Nose/Eyes GI Upset > 30mins: 3= Vomiting/Diarrhea Tremor Observation: 1= Tremor Mar[place], Not Seen Yawning Observation: 1= 1-2x During Session Anxiety or Irritability: 1=Feels Anxious/Irritable Goose Flesh Skin: 3=Piloerection COWS Score: 19 CIWA Score - Admission Criteria [facility]ASAS Guidelines: Admission for Medically Managed Detox: Requires at least one of the followin. CIWA greater than 12 2. Seizures within the past 24 hours 3. Delirium tremens within the past 24 hours 4. Hallucinations within the past 24 hours 5. Acute intervention needed for co occurring medical disorder 6. Acute intervention needed for co occurring psychiatric disorder 7. Severe withdrawal that cannot be handled at a lower level of care (continued vomiting, continued diarrhea, abnormal vital signs) requiring intravenous medication and/or fluids 8. Admission ROS [facility] Chief Complaint: Withdrawal symptoms Allergies/Adverse Reactions: Allergies Allergy/AdvReac Type Severity Reaction Status Date / Time No Known Allergies Allergy Verified 10/15/18 19:10 History of Present Illness: 32 y.o. man with an extensive history of heroin dependence is here seeking detox services. He last completed detox here on 09/15/18; he was then transferred to rehab but left AMA after 1 day. Exam Limitations: No Limitations - Ebola screening Have you traveled outside of the country in the last 21 days: No (N) Have you had contact with anyone from an Ebola affected area: No Do you have a fever: No - Review of Systems Constitutional: Chills, Loss of Appetite, Night Sweats, Unintentional Wgt. Loss EENT: reports: Tearing, Nose Congestion Respiratory: reports: Cough, Shortness of Breath Cardiac: reports: No Symptoms Reported GI: reports: Diarrhea, Nausea, Vomiting : reports: No Symptoms Reported Musculoskeletal: reports: No Symptoms Reported Integumentary: reports: No Symptoms Reported Neuro: reports: Tremors Endocrine: reports: No Symptoms Reported Hematology: reports: Anemia (TEREZA) Psychiatric: reports: Anxious, Depressed, other (Bipolar) Other Systems: Reviewed and Negative Patient History - Patient Medical History Hx Anemia: Yes (TEREZA ) Hx Asthma: No Hx Chronic Obstructive Pulmonary Disease (COPD): No Hx Cancer: No Hx Cardiac Disorders: No Hx Congestive Heart Failure: No Hx Hypertension: No Hx Hypercholesterolemia: No Hx Pacemaker: No HX Cerebrovascular Accident: No Hx Seizures: No Hx Dementia: No Hx Diabetes: Yes (age [age] years old) Hx Gastrointestinal Disorders: No Hx Liver Disease: No Hx Genitourinary Disorders: No Hx Sexually Transmitted Disorders: No Hx Renal Disease (ESRD): No Hx Thyroid Disease: No Hx Human Immunodeficiency Virus (HIV): Yes (since childbirth) Hx Hepatitis C: No Hx Depression: Yes Hx Suicide Attempt: No Hx Bipolar Disorder: Yes Hx Schizophrenia: No - Patient Surgical History Past Surgical History: No Hx Neurologic Surgery: No Hx Cataract Extraction: No Hx Cardiac Surgery: No Hx Lung Surgery: No Hx Breast Surgery: No Hx Breast Biopsy: No Hx Abdominal Surgery: No Hx Appendectomy: No Hx Cholecystectomy: No Hx Genitourinary Surgery: No Hx Section: No Hx Orthopedic Surgery: No Anesthesia Reaction: No - PPD History Previous Implant?: Yes Documented Results: Negative w/proof Implanted On Prior R Admission?: Yes Date: 08/23/18 Results: 0 mm PPD to be Administered?: No - Reproductive History Patient is a Female of Child Bearing Age (11 -55 yrs old): No - Smoking Cessation Smoking history: Current every day smoker Have you smoked in the past 12 months: Yes Aproximately how many cigarettes per day: 10 Cigars Per Day: 0 Hx Chewing Tobacco Use: No Initiated information on smoking cessation: Yes 'Breaking Loose' booklet given: 10/15/18 - Substance & Tx. History Hx Alcohol Use: No Hx Substance Use: Yes Substance Use Type: Heroin Hx Substance Use Treatment: Yes (DETOX COMPLETED ON 09/15/18) - Substances abused Heroin Substance route: Inhalation Frequency: Daily Amount used: 2 BUNDLES Age of first use: 27 Date of last use: 10/15/18 Family Disease History - Family Disease History Family History: Unable to Obtain Other Family History: Pt. adopted. Admission Physical Exam BHS - Vital Signs Vital Signs: Vital Signs - 24 hr 10/15/18 10/15/18 19:12 19:30 Temperature 98.8 F 98.8 F Pulse Rate 83 83 Respiratory 18 18 Rate Blood Pressure 118/70 118/70 - Physical General Appearance: Yes: Tremorous, Anxious HEENTM: Yes: Hearing grossly Normal, Normocephalic, Normal Voice Respiratory: Yes: Wheezing Neck: Yes: No masses,lesions,Nodules, Trachea in good position Breast: Yes: Breast Exam Deferred Cardiology: Yes: Regular Rhythm, Regular Rate Abdominal: Yes: Normal Bowel Sounds, Non Tender, Flat Genitourinary: Yes: Other (No complaints reported) Back: Yes: Normal Inspection Musculoskeletal: Yes: full range of Motion, Gait Steady Extremities: Yes: Normal Inspection, Normal Range of Motion, Non-Tender Neurological: Yes: Alert, Normal Mood/Affect, Normal Response Integumentary: Yes: Normal Color, Dry, Warm Lymphatic: Yes: Within Normal Limits - Diagnostic (1) TEREZA (iron deficiency anemia) Current Visit: Yes Status: Chronic (2) Opioid dependence with withdrawal Current Visit: Yes Status: Chronic (3) Weight loss Current Visit: Yes Status: Acute (4) HIV (human immunodeficiency virus infection) Current Visit: Yes Status: Chronic Qualifiers: HIV symptom status: unspecified Qualified Code(s): B20 - Human immunodeficiency virus [HIV] disease (5) Nicotine dependence Current Visit: Yes Status: Chronic Qualifiers: Nicotine product type: cigarettes Substance use status: uncomplicated Qualified Code(s): F17.210 - Nicotine dependence, cigarettes, uncomplicated Cleared for Admission [facility] - Detox or Rehab [facility] Level of Care: Medically Managed Detox Regimen/Protocol: Methadone Breathalyzer - Breathalyzer Breathalyzer: 0 Urine Drug Screen - Test Device Lot number: [id number] Expiration date: 05/31/20 - Control Is test valid?: Yes - Results Drug screen NEGATIVE: No Urine drug screen results: FEN-Fentanyl, MOP-Opiates Inpatient Rehab Admission - Rehab Decision to Admit Inpatient rehab admission?: No
[2018-10-15] MEDS ORDERED: cloNIDine HCL 0.1 MG TABLET PO PRN (20:11)
[2018-10-15] MEDS ORDERED: MELATONIN 5 MG TABLETS PO PRN (20:11)
[2018-10-15] MEDS ORDERED: MAGNESIUM CITRATE 300 ML BOTTLE PO PRN (20:11)
[2018-10-15] MEDS ORDERED: MAGNESIUM HYDROX 2400MG/30ML ORAL SUSPENSION 30 ML CUP PO PRN (20:11)
[2018-10-15] MEDS ORDERED: MAG HYDROX/AL HYDROX/SIMETH 30 ML UNIT-DOSE CUP PO PRN (20:11)
[2018-10-15] MEDS ORDERED: ACETAMINOPHEN 325 MG TABLET (FP) PO PRN ×2 (20:11)
[2018-10-15] MEDS ORDERED: MENTHOL/PHENOL 1 EACH UD MM PRN (20:11)
[2018-10-15] MEDS ORDERED: NICOTINE POLACRILEX 2 MG GUM BUC PRN (20:11)
[2018-10-15] MEDS ORDERED: IBUPROFEN 400 MG TABLET (FP) PO PRN (20:11)
[2018-10-15] MEDS ORDERED: ONDANSETRON *ODT* 4 MG TABLET SL PRN (20:11)
[2018-10-15] MEDS ORDERED: BISMUTH SUBSALICYLATE 524 MG/30 ML UD PO PRN (20:11)
[2018-10-15] MEDS ORDERED: METHADONE HCL 10 MG TABLET (FOR DETOX USE ONLY) PO ONE ×2 (21:00→23:00)
[2018-10-15] MEDS: metFORMIN HCL 500 MG TABLET (FP) PO SCH (21:30)
[2018-10-15] MEDS: INSULIN (NOVOLOG MIX 70/30) 100 UNITS/ML MDV SQ SCH (21:37)
[2018-10-15] MEDS: THIAMINE HCL 100 MG TABLET (FP) PO SCH (22:21)
[2018-10-16] MEDS ORDERED: INSULIN SLIDING SCALE (NOVOLOG) 1 VIAL SQ SCH (07:00)
[2018-10-16] MEDS: metFORMIN HCL 500 MG TABLET (FP) PO SCH ×2 (07:20→17:29)
[2018-10-16] MEDS: INSULIN SLIDING SCALE (NOVOLOG) 1 VIAL SQ SCH ×2 (07:20→17:15)
[2018-10-16] MEDS ORDERED: INSULIN (NOVOLOG MIX 70/30) 100 UNITS/ML MDV SQ ONE (07:55)
[2018-10-16] MEDS: INSULIN (NOVOLOG MIX 70/30) 100 UNITS/ML MDV SQ SCH ×2 (08:00→21:20)
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
[2018-10-16] MEDS ORDERED: METHADONE HCL 10 MG TABLET (FOR DETOX USE ONLY) PO ONE (10:00)
[2018-10-16] MEDS: NICOTINE 14 MG/24 HOURS TOPICAL PATCH TD SCH (10:21)
[2018-10-16] MEDS: PRENATAL VITAMINS W/ FOLIC ACID TABLET (FP) PO SCH (10:24)
[2018-10-16] MEDS: hydrOXYzine PAMOATE 50 MG CAPSULE (FP) PO PRN (10:24)
--- NOTE | 2018-10-16 11:52 | PN ---
BHS COWS - Scale Resting Pulse: 0= [place] 80 or Below Sweatin=Flushed/Facial Moisture Restless Observation: 1= Difficult to Sit Still Pupil Size: 0= Normal to Room Light Bone or Joint Aches: 2= Severe Diffuse Aches Runny Nose/ Eye Tearin= Runny Nose/Eyes GI Upset > 30mins: 1= Stomach Cramp Tremor Observation of Outstretched Hands: 2= Slight Tremor Visible Yawning Observation: 2= >3x During Session Anxiety or Irritability: 2=Irritable/Anxious Goose Flesh Skin: 3=Piloerection COWS Score: 17 BHS Progress Note (SOAP) Subjective: chills sweats shakes interrupted sleep body aches agitation Objective: 10/16/18 11:51 Vital Signs Temperature 98.1 F 10/16/18 09:37 Pulse Rate 56 L 10/16/18 09:37 Respiratory Rate 16 10/16/18 09:37 Blood Pressure 117/68 10/16/18 09:37 O2 Sat by Pulse Oximetry (%) Laboratory Tests 10/15/18 10/16/18 21:27 06:32 POC Glucometer 377 113 rest of labs pending aaox3 ambulating no acute distress Assessment: 10/16/18 11:51 withdrawal sx Plan: continue detox increase fluids pending labs
[2018-10-16 13:04] LABS: ALBUMIN 2.7 g/dl (3.4-5.0); ALK PHOS 98 U/L (45-117); ANION GAP 3 MMOL/L (8-16); BLOOD UREA NITROGEN 5 mg/dL (7-18); CALCIUM 8.8 mg/dL (8.5-10.1); CHLORIDE 97 mmol/L (98-107); CO2 35 mmol/L (21-32); CREATININE 0.7 mg/dL (0.55-1.3); GLUCOSE,RANDOM 119 mg/dL (74-106); POTASSIUM 3.7 mmol/L (3.5-5.1); SGOT/AST 23 U/L (15-37); SGPT/ALT 17 U/L (13-61); SODIUM 135 mmol/L (136-145); TOT PROT 6.8 g/dl (6.4-8.2)
[2018-10-16 13:30] LABS: HEMATOCRIT 43.4 % (35.4-49); HEMOGLOBIN 14.5 GM/dL (11.7-16.9); MCH 33.8 pg (25.7-33.7); MCHC 33.4 g/dl (32.0-35.9); MEAN PLT VOLUME 9.8 fl (7.5-11.1); PLATELET COUNT 222 K/MM3 (134-434); RBC 4.29 M/mm3 (4.00-5.60); RDW 13.8 % (11.9-15.9); WHITE BLOOD COUNT 6.6 K/mm3 (4.0-10.0)
[2018-10-16] MEDS: THIAMINE HCL 100 MG TABLET (FP) PO SCH (22:32)
[2018-10-16] MEDS: QUEtiapine FUMARATE 100 MG TABLET (FP) PO SCH (22:32)
[2018-10-17] MEDS: INSULIN SLIDING SCALE (NOVOLOG) 1 VIAL SQ SCH ×2 (07:30→17:12)
[2018-10-17] MEDS: metFORMIN HCL 500 MG TABLET (FP) PO SCH ×2 (07:30→17:11)
[2018-10-17] MEDS: INSULIN (NOVOLOG MIX 70/30) 100 UNITS/ML MDV SQ SCH ×2 (07:30→23:34)
[2018-10-17] MEDS ORDERED: INSULIN SLIDING SCALE (NOVOLOG) 1 VIAL SQ ONE (07:40)
[2018-10-17] MEDS ORDERED: INSULIN (NOVOLOG MIX 70/30) 100 UNITS/ML MDV SQ ONE (07:41)
[2018-10-17] MEDS ORDERED: METHADONE HCL 10 MG TABLET (FOR DETOX USE ONLY) PO ONE (10:00)
[2018-10-17] MEDS: PRENATAL VITAMINS W/ FOLIC ACID TABLET (FP) PO SCH (10:15)
[2018-10-17] MEDS: NICOTINE 14 MG/24 HOURS TOPICAL PATCH TD SCH (10:16)
[2018-10-17] MEDS: clonazePAM 0.5 MG TABLET PO PRN ×2 (10:18→22:32)
[2018-10-17] MEDS: METHOCARBAMOL 500 MG TABLET PO PRN ×2 (10:18→22:31)
[2018-10-17] MEDS: hydrOXYzine PAMOATE 50 MG CAPSULE (FP) PO PRN (10:18)
--- NOTE | 2018-10-17 12:02 | PN ---
BHS COWS - Scale Resting Pulse: 0= [place] 80 or Below Sweatin=Flushed/Facial Moisture Restless Observation: 1= Difficult to Sit Still Pupil Size: 0= Normal to Room Light Bone or Joint Aches: 2= Severe Diffuse Aches Runny Nose/ Eye Tearin= Nasal Congestion GI Upset > 30mins: 0= None Tremor Observation of Outstretched Hands: 2= Slight Tremor Visible Yawning Observation: 2= >3x During Session Anxiety or Irritability: 2=Irritable/Anxious Goose Flesh Skin: 0=Smooth Skin COWS Score: 12 S Progress Note (SOAP) Subjective: chills sweats body aches anxiety I need to see psych for a change to my seroquel Objective: 10/17/18 12:02 Vital Signs Temperature 97.3 F L 10/17/18 10:49 Pulse Rate 72 10/17/18 10:49 Respiratory Rate 16 10/17/18 10:49 Blood Pressure 143/87 10/17/18 10:49 O2 Sat by Pulse Oximetry (%) Laboratory Tests 10/15/18 10/16/18 10/16/18 21:27 06:32 07:00 WBC 6.6 RBC 4.29 Hgb 14.5 Hct 43.4 MCV 101.0 H MCH 33.8 H MCHC 33.4 RDW 13.8 Plt Count 222 MPV 9.8 Sodium Potassium Chloride Carbon Dioxide Anion Gap BUN Creatinine Creat Clearance w eGFR POC Glucometer 377 113 Random Glucose Calcium Total Bilirubin AST ALT Alkaline Phosphatase Total Protein Albumin RPR Titer 10/16/18 10/16/18 10/16/18 07:00 07:00 16:43 WBC RBC Hgb Hct MCV MCH MCHC RDW Plt Count MPV Sodium 135 L Potassium 3.7 Chloride 97 L Carbon Dioxide 35 H Anion Gap 3 L BUN 5 L Creatinine 0.7 Creat Clearance w eGFR 132.41 POC Glucometer 116 Random Glucose 119 H Calcium 8.8 Total Bilirubin 1.0 AST 23 ALT 17 Alkaline Phosphatase 98 Total Protein 6.8 Albumin 2.7 L RPR Titer Nonreactive 10/16/18 10/17/18 21:13 05:19 WBC RBC Hgb Hct MCV MCH MCHC RDW Plt Count MPV Sodium Potassium Chloride Carbon Dioxide Anion Gap BUN Creatinine Creat Clearance w eGFR POC Glucometer 127 252 Random Glucose Calcium Total Bilirubin AST ALT Alkaline Phosphatase Total Protein Albumin RPR Titer aaox3 ambulating no acute distress Assessment: 10/17/18 12:03 withdrawal sx Plan: continue detox increase fluids psych ordered for re-evaluation of his seroquel
--- NOTE | 2018-10-17 17:15 | PN ---
Psychiatric Progress Note Vital Signs: Vital Signs Period Temp Pulse Resp BP Sys/Garcia Pulse Ox Last 24 Hr 97.3 F-98.9 F 54-78 16- 116-148/74-93 Date of Session: 10/17/18 Chief Complaint:: " I need seroquel in the morning for my depression." HPI: Patient reports feeling depressed and is requesting a morning dose of seroquel. ROS: Patient coherent, alert and oriented X3. Current Medications: Active Medications Generic Name Dose Route Start Last Admin Trade Name Freq PRN Reason Stop Dose Admin Acetaminophen 650 mg 10/15/18 20:11 Tylenol - PO Q6H PRN PAIN LEVEL 4 - 6 Acetaminophen 650 mg 10/15/18 20:11 Tylenol - PO Q6H PRN FEVER Al Hydroxide/Mg Hydroxide 30 ml 10/15/18 20:11 Mylanta Oral Suspension - PO Q6H PRN DYSPEPSIA Bismuth Subsalicylate 524 mg 10/15/18 20:11 Pepto-Bismol - PO Q1H PRN DIARRHEA Clonazepam 0.5 mg 10/15/18 20:11 10/17/18 10:18 Klonopin - PO 0.5 mg Q6H PRN Administration Withdrawal Symptoms Clonidine 0.1 mg 10/15/18 20:11 10/17/18 10:18 Catapres - PO 10/17/18 23:55 0.1 mg Q6H PRN Administration Withdrawal Symptoms Eucalyptus/Menthol/Phenol/Sorbitol 1 each 10/15/18 20:11 Cepastat Lozenge - MM 10/21/18 20:13 Q4H PRN SORE THROAT Hydroxyzine Pamoate 50 mg 10/15/18 20:11 10/17/18 10:18 Vistaril - PO 10/21/18 20:15 50 mg Q6H PRN Administration For Anxiety Ibuprofen 400 mg 10/15/18 20:11 Motrin - PO Q6H PRN PAIN LEVEL 1 - 3 Insulin Aspart 10 units 10/15/18 22:00 10/16/18 21:20 Novolog Mix 70/30 Vial SQ Not Given HS RITU Insulin Aspart 40 units 10/16/18 07:00 10/17/18 07:30 Novolog Mix 70/30 Vial SQ 40 units DAILY@0700 RITU Administration Insulin Aspart 1 vial 10/16/18 07:00 10/17/18 17:12 Novolog Vial Sliding Scale - SQ Not Given [facility] Protocol Magnesium Citrate 300 ml 10/15/18 20:11 Citroma - PO Q48H PRN CONSTIPATION Magnesium Hydroxide 30 ml 10/15/18 20:11 Milk Of Magnesia - PO PRN PRN CONSTIPATION Melatonin 10 mg 10/15/18 20:11 Melatonin PO HS PRN INSOMNIA Metformin HCl 500 mg 10/15/18 21:00 10/17/18 17:11 Glucophage - PO 500 mg BIDAC RITU Administration Methadone HCl 10 mg 10/18/18 06:00 Dolophine - PO 10/18/18 06:01 ONCE@0600 ONE Methocarbamol 500 mg 10/15/18 20:11 10/17/18 10:18 Robaxin - PO 10/21/18 20:13 500 mg Q6H PRN Administration MUSCLE SPASMS Nicotine 14 mg 10/16/18 10:00 10/17/18 10:16 Nicoderm Patch - TD Not Given DAILY RITU Nicotine Polacrilex 2 mg 10/15/18 20:11 Nicorette Gum - BUC Q2H PRN NICOTINE REPLACEMENT RX Ondansetron HCl 4 mg 10/15/18 20:11 Zofran Odt - SL 10/21/18 20:15 Q12H PRN Nausea/Vomiting Multivit/Folic Acid/Iron 1 tab 10/16/18 10:00 10/17/18 10:15 Vitamins (Sjr) - PO 1 tab DAILY RITU Administration Quetiapine Fumarate 100 mg 10/16/18 22:00 10/16/18 22:32 Seroquel - PO 100 mg HS RITU Administration Thiamine HCl 100 mg 10/15/18 22:00 10/16/18 22:32 Vitamin B1 - PO 100 mg HS RITU Administration Medication(s) Change(s): No. Current Side Effect: No Lab tests ordered: No Lab tests reviewed: Yes Provider note:: Patient requesting additional seroquel for his depression. Dr. Lopez's note read and appreciated. Patient with a history of nonadherence to psychiatric treatment. Patient was started on seroquel 100mg last night after not accepting seroquel for two years. Patient reports feeling depressed because of his drug use and is requesting to have seroquel ordered in the morning. Patient educated on the properties of seroquel and SSRI's. Patient reports past history of accepting zoloft but discontinued treatment after complaining of an upset stomach. Patient encouraged to attend rehab so that treatment can be iniatiated with an SSRI. At this time there is no clinical indication to order seroquel in the morning. Patient is currently on methadone taper and was started on seroquel 100mg for insomnia and mood stabilization on 10/16/18. If patient was to be admitted to rehab an SSRI or increase in seroquel can be considered if patient continues to reports depressive symtoms. Patient denies thoughts or urges to hurt self or others. Patient satisified and receptive to feedback. Total face to face time:: 25 Mental Status Exam - Mental Status Exam Alert and Oriented to: Time, Place, Person Cognitive Function: Good Patient Appearance: Well Groomed Mood: Withdrawn Affect: Mood Congruent Patient Behavior: Cooperative Speech Pattern: Appropriate Voice Loudness: Moderately Soft/Quiet Thought Process: Goal Oriented Thought Disorder: Not Present Hallucinations: Denies Suicidal Ideation: Denies Homicidal Ideation: Denies Insight/Judgement: Poor Sleep: Fair Appetite: Fair Muscle strength/Tone: Normal Gait/Station: Normal Psychiatric Treatment Plan - Problem List (1) Opioid dependence with withdrawal Current Visit: Yes (2) Substance induced mood disorder Current Visit: Yes (3) Substance-induced sleep disorder Current Visit: Yes (4) Mood disorder Current Visit: Yes
[2018-10-17] MEDS: QUEtiapine FUMARATE 100 MG TABLET (FP) PO SCH (22:29)
[2018-10-17] MEDS: THIAMINE HCL 100 MG TABLET (FP) PO SCH (23:35)
[2018-10-18] MEDS ORDERED: METHADONE HCL 10 MG TABLET (FOR DETOX USE ONLY) PO ONE ×2 (06:00→10:00)
[2018-10-18] MEDS: metFORMIN HCL 500 MG TABLET (FP) PO SCH (07:15)
[2018-10-18] MEDS: INSULIN (NOVOLOG MIX 70/30) 100 UNITS/ML MDV SQ SCH (07:15)
[2018-10-18] MEDS: INSULIN SLIDING SCALE (NOVOLOG) 1 VIAL SQ SCH (07:16)
[2018-10-18] MEDS ORDERED: INSULIN SLIDING SCALE (NOVOLOG) 1 VIAL SQ ONE (07:37)
[2018-10-18] MEDS ORDERED: INSULIN (NOVOLOG MIX 70/30) 100 UNITS/ML MDV SQ ONE (07:38)
--- NOTE | 2018-10-18 09:05 | DS ---
[facility] Detox Discharge Summary Admission Date: 10/15/18 Discharge Date: 10/18/18 - History Present History: Cocaine Dependence, Opioid Dependence Additional Comments: Patient medially stable. Patient to follow up at [facility] for rehabilitation. Patient to follow up with primary care provider upon completing rehab. - Physical Exam Results Vital Signs: Vital Signs Temperature 97.9 F 10/18/18 06:00 Pulse Rate 58 L 10/18/18 06:00 Respiratory Rate 16 10/18/18 06:00 Blood Pressure 122/72 10/18/18 06:00 O2 Sat by Pulse Oximetry (%) Pertinent Admission Physical Exam Findings: Last Vital Signs Temp Pulse Resp BP Pulse Ox 98.1 F 92 H 18 126/81 10/18/18 11:33 10/18/18 11:33 10/18/18 11:33 10/18/18 11:33 Laboratory Last Values WBC 6.6 K/mm3 (4.0-10.0) 10/16/18 07:00 RBC 4.29 M/mm3 (4.00-5.60) 10/16/18 07:00 Hgb 14.5 GM/dL (11.7-16.9) 10/16/18 07:00 Hct 43.4 % (35.4-49) 10/16/18 07:00 MCV 101.0 fl (80-96) H 10/16/18 07:00 MCH 33.8 pg (25.7-33.7) H 10/16/18 07:00 MCHC 33.4 g/dl (32.0-35.9) 10/16/18 07:00 RDW 13.8 % (11.9-15.9) 10/16/18 07:00 Plt Count 222 K/MM3 (134-434) 10/16/18 07:00 MPV 9.8 fl (7.5-11.1) 10/16/18 07:00 Sodium 135 mmol/L (136-145) L 10/16/18 07:00 Potassium 3.7 mmol/L (3.5-5.1) 10/16/18 07:00 Chloride 97 mmol/L (98-107) L 10/16/18 07:00 Carbon Dioxide 35 mmol/L (21-32) H 10/16/18 07:00 Anion Gap 3 MMOL/L (8-16) L 10/16/18 07:00 BUN 5 mg/dL (7-18) L 10/16/18 07:00 Creatinine 0.7 mg/dL (0.55-1.3) 10/16/18 07:00 Creat Clearance w eGFR 132.41 (>60) 10/16/18 07:00 POC Glucometer 227 UNITS (80-120) 10/18/18 05:19 Random Glucose 119 mg/dL (74-106) H 10/16/18 07:00 Calcium 8.8 mg/dL (8.5-10.1) 10/16/18 07:00 Total Bilirubin 1.0 mg/dL (0.2-1) 10/16/18 07:00 AST 23 U/L (15-37) 10/16/18 07:00 ALT 17 U/L (13-61) 10/16/18 07:00 Alkaline Phosphatase 98 U/L (45-117) 10/16/18 07:00 Total Protein 6.8 g/dl (6.4-8.2) 10/16/18 07:00 Albumin 2.7 g/dl (3.4-5.0) L 10/16/18 07:00 RPR Titer Nonreactive (NONREACTIVE) 10/16/18 07:00 - Treatment Hospital Course: Detox Protocol Followed, Detoxed Safely, Responded well, Discharged Condition Good, Rehab Referral Accepted Patient has Accepted a Rehab Referral to: [facility] - Medication Discharge Medications: Ambulatory Orders Insulin (Novolog 70/30) [Novolog Mix 70/30 Vial -] 10 units SQ HS 08/21/18 Insulin (Novolog 70/30) [Novolog Mix 70/30 Vial -] 40 units SQ AM 08/21/18 Metformin HCl [Glucophage] 500 mg PO BID 08/21/18 - Diagnosis (1) Opioid dependence with withdrawal Status: Acute (2) Weight loss Status: Acute (3) Cocaine dependence Status: Chronic Qualifiers: Substance use status: uncomplicated Qualified Code(s): F14.20 - Cocaine dependence, uncomplicated (4) HIV (human immunodeficiency virus infection) Status: Chronic Qualifiers: HIV symptom status: unspecified Qualified Code(s): B20 - Human immunodeficiency virus [HIV] disease (5) IDDM (insulin dependent diabetes mellitus) Status: Chronic (6) Nicotine dependence Status: Chronic Qualifiers: Nicotine product type: cigarettes Substance use status: uncomplicated Qualified Code(s): F17.210 - Nicotine dependence, cigarettes, uncomplicated - AMA Did Patient Leave Against Medical Advice: No
[2018-10-18] MEDS: PRENATAL VITAMINS W/ FOLIC ACID TABLET (FP) PO SCH (10:18)
[2018-10-18] MEDS: NICOTINE 14 MG/24 HOURS TOPICAL PATCH TD SCH (10:18)
[2018-10-18 11:34] VITALS: BP 126/81; PULSE 92; TEMP 98.1
[2018-10-19] MEDS ORDERED: METHADONE HCL 5 MG TABLET (FOR DETOX USE ONLY) PO ONE (06:00)
== END 2018-10-18 11:07 | disposition home or self-care (01) | DRG 773 ==
LOC: YASAS 14:36 → Y6N 20:48
PROVIDERS: ADMIT Surgery; ATTEND Surgery
PROC: HZ2ZZZZ Detoxification Services for Substance Abuse Treatment (ICD-10-PCS; principal; 2018-10-15)
DX: F11.23 Opioid dependence with withdrawal (principal); F14.20 Cocaine dependence, uncomplicated; F17.210 Nicotine dependence, cigarettes, uncomplicated; F19.24 Other psychoactive substance dependence with psychoactive substance-induced mood disorder; F19.282 Other psychoactive substance dependence with psychoactive substance-induced sleep disorder; F39 Unspecified mood [affective] disorder; Z21 Asymptomatic human immunodeficiency virus [HIV] infection status; E11.9 Type 2 diabetes mellitus without complications; D50.9 Iron deficiency anemia, unspecified; Z79.4 Long term (current) use of insulin
CPT/HCPCS: 36415; 80053; 82962; 85027; 86593; J0735

== ENCOUNTER 2018-11-13 08:50 | Inpatient (IN) | payer OTHER ==
[2018-11-13 09:57] VITALS: BMI 21.9
--- NOTE | 2018-11-13 10:41 | HP ---
COWS - Scale Resting Pulse: 1= ID [id number] Sweatin= Chills/Flushing Restless Observation: 1= Difficult to Sit Still Pupil Size: 1= Pupils >than Normal Bone or Joint Aches: 2= Severe Diffuse Aches Runny Nose/ Eye Tearin= Runny Nose/Eyes GI Upset > 30mins: 2= Nausea/Diarrhea Tremor Observation: 2= Slight Tremor Visible Yawning Observation: 2= >3x During Session Anxiety or Irritability: 2=Irritable/Anxious Goose Flesh Skin: 0=Smooth Skin COWS Score: 16 CIWA Score - Admission Criteria [facility]ASAS Guidelines: Admission for Medically Managed Detox: Requires at least one of the followin. CIWA greater than 12 2. Seizures within the past 24 hours 3. Delirium tremens within the past 24 hours 4. Hallucinations within the past 24 hours 5. Acute intervention needed for co occurring medical disorder 6. Acute intervention needed for co occurring psychiatric disorder 7. Severe withdrawal that cannot be handled at a lower level of care (continued vomiting, continued diarrhea, abnormal vital signs) requiring intravenous medication and/or fluids 8. Admission ROS [facility] - [facility] Chief Complaint: i need help to stop heroin and cocaine Allergies/Adverse Reactions: Allergies Allergy/AdvReac Type Severity Reaction Status Date / Time No Known Allergies Allergy Verified 11/13/18 09:44 History of Present Illness: this 32 years old male with heroin and cocaine dependence,seeking detox, withdrawal symptom had previous admissions last 10/15/18 to 10/18/18 keep relapsing nicotine dependence 1/2 pack/day,would like to have patch and gum iddm longest period sobriety 11 months insomnia plan for rehab after detox Exam Limitations: No Limitations - Ebola screening Have you traveled outside of the country in the last 21 days: No (N) Have you had contact with anyone from an Ebola affected area: No Do you have a fever: No - Review of Systems Constitutional: Chills, Malaise, Night Sweats, Changes in sleep, Weakness, Weight Stable EENT: reports: Tearing, Nose Congestion Respiratory: reports: No Symptoms reported Cardiac: reports: No Symptoms Reported GI: reports: Nausea, Vomiting, Abdominal cramping : reports: No Symptoms Reported Musculoskeletal: reports: Back Pain, Muscle Pain Integumentary: reports: Dryness Neuro: reports: Headache, Tremors Hematology: reports: No Symptoms Reported Psychiatric: reports: Mood/Affect Appropiate, Orientated x3, other (insomnia) Other Systems: Reviewed and Negative Patient History - Patient Medical History Hx Anemia: Yes (TEREZA ) Hx Asthma: No Hx Chronic Obstructive Pulmonary Disease (COPD): No Hx Cancer: No Hx Cardiac Disorders: No Hx Congestive Heart Failure: No Hx Hypertension: No Hx Hypercholesterolemia: No Hx Pacemaker: No HX Cerebrovascular Accident: No Hx Seizures: No Hx Dementia: No Hx Diabetes: Yes (age [age] years old) Hx Gastrointestinal Disorders: No Hx Liver Disease: No Hx Genitourinary Disorders: No Hx Sexually Transmitted Disorders: No Hx Renal Disease (ESRD): No Hx Thyroid Disease: No Hx Human Immunodeficiency Virus (HIV): Yes (since childbirth) Hx Hepatitis C: No Hx Depression: Yes Hx Suicide Attempt: No Hx Bipolar Disorder: Yes Hx Schizophrenia: No Other Medical History: no suicidal,no homicidal - Patient Surgical History Past Surgical History: No Hx Neurologic Surgery: No Hx Cataract Extraction: No Hx Cardiac Surgery: No Hx Lung Surgery: No Hx Breast Surgery: No Hx Breast Biopsy: No Hx Abdominal Surgery: No Hx Appendectomy: No Hx Cholecystectomy: No Hx Genitourinary Surgery: No Hx Section: No Hx Orthopedic Surgery: No Anesthesia Reaction: No - PPD History Previous Implant?: Yes Documented Results: Negative w/proof Implanted On Prior [facility] Admission?: Yes Date: 08/23/18 Results: 0 mm PPD to be Administered?: No - Smoking Cessation Smoking history: Current every day smoker Have you smoked in the past 12 months: Yes Aproximately how many cigarettes per day: 10 Cigars Per Day: 0 Hx Chewing Tobacco Use: No Initiated information on smoking cessation: Yes 'Breaking Loose' booklet given: 11/13/18 - Substance & Tx. History Hx Alcohol Use: No Hx Substance Use: Yes Substance Use Type: Cocaine, Heroin Hx Substance Use Treatment: Yes ([facility] 10/15/18 to 10/18/18) - Substances abused Heroin Substance route: Inhalation Frequency: Daily Amount used: 2 BUNDLES Age of first use: 27 Date of last use: 11/13/18 Crack Substance route: Smoking Frequency: 1-3 times last 30 days Amount used: 20 dollars Age of first use: 31 Date of last use: 11/12/18 Cocaine Substance route: Smoking Frequency: 1-3 times last 30 days Amount used: 20 dollars Age of first use: 31 Date of last use: 11/12/18 Family Disease History - Family Disease History Family History: Denies Admission Physical Exam [facility] - Vital Signs Vital Signs: Vital Signs - 24 hr 11/13/18 09:44 Temperature 97.5 F L Pulse Rate 95 H Respiratory 16 Rate Blood Pressure 139/83 - Physical General Appearance: Yes: Moderate Distress, Tremorous, Irritable, Sweating, Anxious HEENTM: Yes: Normal ENT Inspection, VICTORINA, Pharynx Normal Respiratory: Yes: Lungs Clear, Normal Breath Sounds, No Respiratory Distress Neck: Yes: Within Normal Limits, Supple, Trachea in good position Breast: Yes: Within Normal Limits Cardiology: Yes: Within Normal Limits, Regular Rhythm, Regular Rate, S1, S2 Abdominal: Yes: Within Normal Limits, Normal Bowel Sounds, Non Tender, Flat, Soft Genitourinary: Yes: Within Normal Limits Back: Yes: Muscle Spasm Musculoskeletal: Yes: full range of Motion, Back pain, Muscle Pain Extremities: Yes: Within Normal Limits, Normal Range of Motion, Tremors Neurological: Yes: spanish language lecturer II-XII NML intact, Fully Oriented, Alert, Motor Strength 5/5 Integumentary: Yes: Dry Lymphatic: Yes: Within Normal Limits - Diagnostic (1) Opioid dependence with withdrawal Current Visit: No Status: Acute Comment: .. (2) IVDU (intravenous drug user) Current Visit: Yes Status: Acute (3) Dehydration Current Visit: No Status: Acute (4) Weight loss Current Visit: No Status: Acute (5) Bipolar disorder Current Visit: No Status: Chronic (6) Cocaine dependence Current Visit: No Status: Chronic Qualifiers: Substance use status: uncomplicated Qualified Code(s): F14.20 - Cocaine dependence, uncomplicated (7) HIV (human immunodeficiency virus infection) Current Visit: No Status: Chronic Qualifiers: HIV symptom status: unspecified Qualified Code(s): B20 - Human immunodeficiency virus [HIV] disease (8) Nicotine dependence Current Visit: No Status: Chronic Qualifiers: Nicotine product type: cigarettes Substance use status: uncomplicated Qualified Code(s): F17.210 - Nicotine dependence, cigarettes, uncomplicated (9) Bipolar disorder Current Visit: No Status: Ruled-out Cleared for Admission [facility] - Detox or Rehab [facility] Level of Care: Medically Managed Detox Regimen/Protocol: Methadone Breathalyzer - Breathalyzer Breathalyzer: 0 Urine Drug Screen - Test Device Lot number: [id number] Expiration date: 08/01/20 - Control Is test valid?: Yes - Results Drug screen NEGATIVE: No Urine drug screen results: DONIS-Cocaine, FEN-Fentanyl, MOP-Opiates Inpatient Rehab Admission - Rehab Decision to Admit Inpatient rehab admission?: No
[2018-11-13] MEDS ORDERED: MENTHOL/PHENOL 1 EACH UD MM PRN (10:48)
[2018-11-13] MEDS ORDERED: ACETAMINOPHEN 325 MG TABLET (FP) PO PRN ×2 (10:48)
[2018-11-13] MEDS ORDERED: MAGNESIUM HYDROX 2400MG/30ML ORAL SUSPENSION 30 ML CUP PO PRN (10:48)
[2018-11-13] MEDS ORDERED: MAGNESIUM CITRATE 300 ML BOTTLE PO PRN (10:48)
[2018-11-13] MEDS ORDERED: cloNIDine HCL 0.1 MG TABLET PO PRN (10:48)
[2018-11-13] MEDS ORDERED: BISMUTH SUBSALICYLATE 262 MG/15 ML BTL PO PRN (10:48)
[2018-11-13] MEDS ORDERED: MAG HYDROX/AL HYDROX/SIMETH 30 ML UNIT-DOSE CUP PO PRN (10:48)
[2018-11-13] MEDS ORDERED: IBUPROFEN 400 MG TABLET (FP) PO PRN (10:48)
[2018-11-13] MEDS ORDERED: METHADONE HCL 10 MG TABLET (FOR DETOX USE ONLY) PO ONE ×2 (11:25→23:00)
[2018-11-13] MEDS ORDERED: INSULIN SLIDING SCALE (NOVOLOG) 1 VIAL SQ ONE ×3 (11:51→21:38)
[2018-11-13] MEDS: diazePAM 5 MG TABLET PO PRN ×3 (11:52→21:10)
[2018-11-13] MEDS: INSULIN (NOVOLOG) ASPART 100 UNITS/ML 10ML VIAL SQ SCH ×3 (11:52→21:06)
[2018-11-13] MEDS: NICOTINE 21 MG/24 HOURS TOPICAL PATCH TD SCH (11:52)
[2018-11-13 14:26] LABS: HEMATOCRIT 41.1 % (35.4-49); HEMOGLOBIN 13.5 GM/dL (11.7-16.9); MCH 33.1 pg (25.7-33.7); MCHC 32.9 g/dl (32.0-35.9); MEAN CELL VOLUME 100.6 fl (80-96); MEAN PLT VOLUME 8.8 fl (7.5-11.1); PLATELET COUNT 272 K/MM3 (134-434); RBC 4.08 M/mm3 (4.00-5.60); RDW 13.7 % (11.9-15.9); WHITE BLOOD COUNT 5.1 K/mm3 (4.0-10.0)
[2018-11-13 14:33] LABS: EPI CELLS 4.2 /HPF (0-5/HPF); URINE APPEARANCE CLEAR; URINE BACTERIA 136.5 /hpf (NEGATIVE); URINE BILIRUBIN NEGATIVE (NEGATIVE); URINE CASTS 15 /lpf (0-8); URINE COLOR YELLOW; URINE GLUCOSE (UA) 3+ (NEGATIVE); URINE KETONE TRACE (NEGATIVE); URINE LEUK ESTERASE NEGATIVE (NEGATIVE); URINE NITRITE NEGATIVE (NEGATIVE); URINE PROTEIN 4+ (NEGATIVE); URINE RBC 5 /hpf (0-4); URINE WBC 3 /hpf (0-5)
[2018-11-13 15:00] LABS: BILIRUBIN,TOTAL 0.9 mg/dL (0.2-1); CALCIUM 9.1 mg/dL (8.5-10.1); CREATININE 1.1 mg/dL (0.55-1.3); POTASSIUM 4.9 mmol/L (3.5-5.1); TOT PROT 7.5 g/dl (6.4-8.2)
[2018-11-13] MEDS: PATIENT'S OWN MEDICATION (NON-FORMULARY) (Darunavir/Cob/Emtri/Tenof Alaf [Symtuza 800-150- PO SCH (15:30)
[2018-11-13] MEDS: metFORMIN HCL 500 MG TABLET (FP) PO SCH (17:34)
[2018-11-13] MEDS: NICOTINE POLACRILEX 2 MG GUM BUC PRN (17:36)
[2018-11-13] MEDS: INSULIN (NOVOLOG MIX 70/30) 100 UNITS/ML MDV SQ SCH (21:07)
[2018-11-13] MEDS: THIAMINE HCL 100 MG TABLET (FP) PO SCH (21:09)
[2018-11-13] MEDS: MELATONIN 5 MG TABLETS PO PRN (21:13)
[2018-11-13] MEDS ORDERED: QUEtiapine FUMARATE 100 MG TABLET (FP) PO SCH (22:00)
[2018-11-14] MEDS: diazePAM 5 MG TABLET PO PRN ×3 (05:11→21:43)
[2018-11-14] MEDS: INSULIN (NOVOLOG) ASPART 100 UNITS/ML 10ML VIAL SQ SCH ×4 (06:52→21:41)
[2018-11-14] MEDS: metFORMIN HCL 500 MG TABLET (FP) PO SCH ×2 (07:12→17:13)
[2018-11-14] MEDS: INSULIN (NOVOLOG MIX 70/30) 100 UNITS/ML MDV SQ SCH ×2 (07:57→21:41)
--- NOTE | 2018-11-14 09:01 | CONSULT ---
[facility] Psychiatric Consult - Data Date of interview: 11/14/18 Admission source: [facility] Identifying data: Patient is a 32 year old male, father of three, unemployed, homeless, and is supported by [facility]. This is one of multiple admissions for detox. Patient admitted to for opiate and cocaine dependence. Substance Abuse History: - Smoking Cessation. Smoking history: Current every day smoker. Have you smoked in the past 12 months: Yes. Aproximately how many cigarettes per day: 10. Cigars Per Day: 0. Hx Chewing Tobacco Use: No. Initiated information on smoking cessation: Yes. 'Breaking Loose' booklet given : 11/13/18. - Substance & Tx. History. Hx Alcohol Use: No. Hx Substance Use: Yes. Substance Use Type: Cocaine, Heroin. Hx Substance Use Treatment: Yes ( [facility] 10/15/18 to 10/18/18). - Substances abused. Heroin. Substance route: Inhalation. Frequency: Daily. Amount used: 2 BUNDLES. Age of first use: 27. Date of last use: 11/13/18. Crack. Substance route: Smoking. Frequency: 1- 3 times last 30 days. Amount used: 20 dollars. Age of first use: 31. Date of last use: 11/12/18. Cocaine. Substance route: Smoking. Frequency: 1-3 times last 30 days. Amount used: 20 dollars. Age of first use: 31. Date of last use: 11/12/18 Medical History: Significant for anemia, diabetes mellitus and HIV since childbirth. Psychiatric History: Patient's first psychiatric contact was at an outpatient clinic as an 20 year old to address his depression. He was diagnosed with depression but refused psychopharmacological treatment. Patient reports h/o two psychiatric hospitalizations most recently at a psychiatric facility in [place] after reporting suicidal ideation. Patient reports h/o one suicide attempt via cutting of his wrist while living in [place]. States he has been prescribed klonopin, zoloft, risperdal and other psychotropic agents. Patient is also known to [facility]. Patient denies current outpatient psychiatric care. States the last time he saw a psychiatrist was three years ago during his psychiatric admission at an unknown facility in [place]. Mr. Cheung reports a chronic history of nonadherene to outpatient psychiatric care. Mr. Cheung was recently discharged from [facility] two weeks ago with a presription of zoloft 50mg + Seroquel 50mg daily + 100mg HS + Naltrexone 50mg daily. At present, he reports stable mood. Physical/Sexual Abuse/Trauma History: denies. Mental Status Exam - Mental Status Exam Alert and Oriented to: Time, Place, Person Cognitive Function: Good Patient Appearance: Well Groomed Mood: Euthymic Affect: Mood Congruent Patient Behavior: Cooperative Speech Pattern: Appropriate Voice Loudness: Normal Thought Process: Goal Oriented Thought Disorder: Not Present Hallucinations: Denies Suicidal Ideation: Denies Homicidal Ideation: Denies Insight/Judgement: Poor Sleep: Poorly Appetite: Fair Muscle strength/Tone: Normal Gait/Station: Normal Psychiatric Findings - Problem List ([place] 1, 2,3) (1) Opioid dependence Current Visit: Yes Status: Acute Qualifiers: Substance use status: uncomplicated Qualified Code(s): F11.20 - Opioid dependence, uncomplicated (2) Mood disorder Current Visit: Yes Status: Chronic Comment: .. (3) Cocaine dependence Current Visit: Yes Status: Chronic Qualifiers: Substance use status: uncomplicated Qualified Code(s): F14.20 - Cocaine dependence, uncomplicated (4) Nicotine dependence Current Visit: Yes Status: Chronic Qualifiers: Nicotine product type: cigarettes Substance use status: uncomplicated Qualified Code(s): F17.210 - Nicotine dependence, cigarettes, uncomplicated - Initial Treatment Plan Initial Treatment Plan: Psychoeducation provided. Detoxification in progress. Will order Zoloft 50mg + Seroquel 50mg HS (patient requesting lower dose of seroquel). Benefits and side effects discussed. Verbal consent given.
--- NOTE | 2018-11-14 09:38 | PN ---
[facility] COWS - Scale Resting Pulse: 0= [place] 80 or Below Sweatin= Chills/Flushing Restless Observation: 0= Sits Still Pupil Size: 1= Pupils >than Normal Bone or Joint Aches: 1= Mild Discomfort Runny Nose/ Eye Tearin= Nasal Congestion GI Upset > 30mins: 1= Stomach Cramp Tremor Observation of Outstretched Hands: 2= Slight Tremor Visible Yawning Observation: 0= None Anxiety or Irritability: 2=Irritable/Anxious Goose Flesh Skin: 3=Piloerection COWS Score: 12 S Progress Note (SOAP) Subjective: doing well with methadone detox regimen long history of diabetes in good control adherence with hiv medication Objective: 11/14/18 09:39 Vital Signs Temperature 96.8 F L 11/14/18 06:20 Pulse Rate 76 11/14/18 06:20 Respiratory Rate 18 11/14/18 06:30 Blood Pressure 108/69 11/14/18 06:20 O2 Sat by Pulse Oximetry (%) Laboratory Last Values WBC 5.1 K/mm3 (4.0-10.0) 11/13/18 10:30 RBC 4.08 M/mm3 (4.00-5.60) 11/13/18 10:30 Hgb 13.5 GM/dL (11.7-16.9) 11/13/18 10:30 Hct 41.1 % (35.4-49) 11/13/18 10:30 MCV 100.6 fl (80-96) H 11/13/18 10:30 MCH 33.1 pg (25.7-33.7) 11/13/18 10:30 MCHC 32.9 g/dl (32.0-35.9) 11/13/18 10:30 RDW 13.7 % (11.9-15.9) 11/13/18 10:30 Plt Count 272 K/MM3 (134-434) D 11/13/18 10:30 MPV 8.8 fl (7.5-11.1) D 11/13/18 10:30 Sodium 134 mmol/L (136-145) L 11/13/18 10:30 Potassium 4.9 mmol/L (3.5-5.1) 11/13/18 10:30 Chloride 98 mmol/L (98-107) 11/13/18 10:30 Carbon Dioxide 29 mmol/L (21-32) 11/13/18 10:30 Anion Gap 6 MMOL/L (8-16) L 11/13/18 10:30 BUN 8 mg/dL (7-18) 11/13/18 10:30 Creatinine 1.1 mg/dL (0.55-1.3) 11/13/18 10:30 Est GFR (CKD-EPI)AfAm 103.85 11/13/18 10:30 Est GFR (CKD-EPI)NonAf 89.61 11/13/18 10:30 POC Glucometer 139 UNITS (80-120) 11/14/18 05:11 Random Glucose 429 mg/dL (74-106) H* 11/13/18 10:30 Calcium 9.1 mg/dL (8.5-10.1) 11/13/18 10:30 Total Bilirubin 0.9 mg/dL (0.2-1) 11/13/18 10:30 AST 76 U/L (15-37) H 11/13/18 10:30 ALT 123 U/L (13-61) H 11/13/18 10:30 Alkaline Phosphatase 177 U/L (45-117) H 11/13/18 10:30 Total Protein 7.5 g/dl (6.4-8.2) 11/13/18 10:30 Albumin 3.0 g/dl (3.4-5.0) L 11/13/18 10:30 Urine Color Yellow 11/13/18 11:50 Urine Appearance Clear 11/13/18 11:50 Urine pH 6.0 (5.0-8.0) 11/13/18 11:50 Ur Specific [place] 1.041 (1.010-1.035) H 11/13/18 11:50 Urine Protein 4+ (NEGATIVE) H 11/13/18 11:50 Urine Glucose (UA) 3+ (NEGATIVE) H 11/13/18 11:50 Urine Ketones Trace (NEGATIVE) H 11/13/18 11:50 Urine Blood 1+ (NEGATIVE) H 11/13/18 11:50 Urine Nitrite Negative (NEGATIVE) 11/13/18 11:50 Urine Bilirubin Negative (NEGATIVE) 11/13/18 11:50 Urine Urobilinogen 1.0 mg/dL (0.2-1.0) 11/13/18 11:50 Ur Leukocyte Esterase Negative (NEGATIVE) 11/13/18 11:50 Urine WBC (Auto) 3 /hpf (0-5) 11/13/18 11:50 Urine RBC (Auto) 5 /hpf (0-4) 11/13/18 11:50 Urine Casts (Auto) 15 /lpf (0-8) 11/13/18 11:50 U Epithel Cells (Auto) 4.2 /HPF (0-5/HPF) 11/13/18 11:50 Urine Bacteria (Auto) 136.5 /hpf (NEGATIVE) 11/13/18 11:50 lab noted repeat ua Assessment: 11/14/18 09:43 opiate withdrawal sx Plan: continue opiate detox
[2018-11-14] MEDS: PATIENT'S OWN MEDICATION (NON-FORMULARY) (Darunavir/Cob/Emtri/Tenof Alaf [Symtuza 800-150- PO SCH (09:58)
[2018-11-14] MEDS: PRENATAL VITAMINS W/ FOLIC ACID TABLET (FP) PO SCH (09:58)
[2018-11-14] MEDS: NICOTINE 21 MG/24 HOURS TOPICAL PATCH TD SCH (10:00)
[2018-11-14] MEDS ORDERED: METHADONE HCL 10 MG TABLET (FOR DETOX USE ONLY) PO ONE (10:00)
[2018-11-14] MEDS: SERTRALINE HCL 50 MG TABLET (FP) PO SCH (10:04)
[2018-11-14] MEDS ORDERED: INSULIN SLIDING SCALE (NOVOLOG) 1 VIAL SQ ONE ×2 (11:13→22:37)
[2018-11-14] MEDS: THIAMINE HCL 100 MG TABLET (FP) PO SCH (21:43)
[2018-11-14] MEDS: QUEtiapine FUMARATE 50 MG TABLET PO SCH (21:44)
[2018-11-14] MEDS: MELATONIN 5 MG TABLETS PO PRN (21:46)
[2018-11-15] MEDS: INSULIN (NOVOLOG) ASPART 100 UNITS/ML 10ML VIAL SQ SCH ×4 (07:01→21:54)
[2018-11-15] MEDS: metFORMIN HCL 500 MG TABLET (FP) PO SCH ×2 (07:01→16:50)
[2018-11-15] MEDS: INSULIN (NOVOLOG MIX 70/30) 100 UNITS/ML MDV SQ SCH ×2 (08:18→16:50)
[2018-11-15] MEDS ORDERED: SODIUM CHLORIDE NASAL SPRAY 44 ML BOTTLE NS PRN (09:55)
[2018-11-15] MEDS ORDERED: METHADONE HCL 10 MG TABLET (FOR DETOX USE ONLY) PO ONE (10:00)
[2018-11-15] MEDS: diazePAM 5 MG TABLET PO PRN ×3 (10:04→22:19)
[2018-11-15] MEDS: PRENATAL VITAMINS W/ FOLIC ACID TABLET (FP) PO SCH (10:04)
[2018-11-15] MEDS: PATIENT'S OWN MEDICATION (NON-FORMULARY) (Darunavir/Cob/Emtri/Tenof Alaf [Symtuza 800-150- PO SCH (10:04)
[2018-11-15] MEDS: SERTRALINE HCL 50 MG TABLET (FP) PO SCH (10:04)
[2018-11-15] MEDS: NICOTINE 21 MG/24 HOURS TOPICAL PATCH TD SCH (10:05)
[2018-11-15] MEDS ORDERED: INSULIN SLIDING SCALE (NOVOLOG) 1 VIAL SQ ONE ×2 (12:00→21:54)
--- NOTE | 2018-11-15 16:46 | PN ---
BHS COWS - Scale Resting Pulse: 1= UT 81-100 Sweatin= Chills/Flushing Restless Observation: 1= Difficult to Sit Still Pupil Size: 0= Normal to Room Light Bone or Joint Aches: 0= None Runny Nose/ Eye Tearin= Runny Nose/Eyes GI Upset > 30mins: 2= Nausea/Diarrhea Tremor Observation of Outstretched Hands: 0= None Yawning Observation: 1= 1-2x During Session Anxiety or Irritability: 2=Irritable/Anxious Goose Flesh Skin: 3=Piloerection COWS Score: 13 BHS Progress Note (SOAP) Subjective: Chills, Sweating, Runny Nose, Diarrhea, Anxious. Objective: PATIENT A & O X 3, OBSERVED AMBULATING ON UNIT UNASSISTED. IN NO ACUTE DISTRESS. 11/15/18 16:45 Vital Signs Temperature 98.1 F 11/15/18 09:26 Pulse Rate 88 11/15/18 09:26 Respiratory Rate 18 11/15/18 09:26 Blood Pressure 136/83 11/15/18 09:26 O2 Sat by Pulse Oximetry (%) Laboratory Tests 11/13/18 11/13/18 11/13/18 10:30 10:30 11:21 WBC 5.1 RBC 4.08 Hgb 13.5 Hct 41.1 MCV 100.6 H MCH 33.1 MCHC 32.9 RDW 13.7 Plt Count 272 D MPV 8.8 D Sodium 134 L Potassium 4.9 Chloride 98 Carbon Dioxide 29 Anion Gap 6 L BUN 8 Creatinine 1.1 Est GFR (CKD-EPI)AfAm 103.85 Est GFR (CKD-EPI)NonAf 89.61 POC Glucometer 397 Random Glucose 429 H* Calcium 9.1 Total Bilirubin 0.9 AST 76 H ALT 123 H Alkaline Phosphatase 177 H Total Protein 7.5 Albumin 3.0 L Urine Color Urine Appearance Urine pH Ur Specific [place] Urine Protein Urine Glucose (UA) Urine Ketones Urine Blood Urine Nitrite Urine Bilirubin Urine Urobilinogen Ur Leukocyte Esterase Urine WBC (Auto) Urine RBC (Auto) Urine Casts (Auto) U Epithel Cells (Auto) Urine Bacteria (Auto) RPR Titer 11/13/18 11/13/18 11/13/18 11:50 16:29 20:50 WBC RBC Hgb Hct MCV MCH MCHC RDW Plt Count MPV Sodium Potassium Chloride Carbon Dioxide Anion Gap BUN Creatinine Est GFR (CKD-EPI)AfAm Est GFR (CKD-EPI)NonAf POC Glucometer 111 470 Random Glucose Calcium Total Bilirubin AST ALT Alkaline Phosphatase Total Protein Albumin Urine Color Yellow Urine Appearance Clear Urine pH 6.0 Ur Specific [place] 1.041 H Urine Protein 4+ H Urine Glucose (UA) 3+ H Urine Ketones Trace H Urine Blood 1+ H Urine Nitrite Negative Urine Bilirubin Negative Urine Urobilinogen 1.0 Ur Leukocyte Esterase Negative Urine WBC (Auto) 3 Urine RBC (Auto) 5 Urine Casts (Auto) 15 U Epithel Cells (Auto) 4.2 Urine Bacteria (Auto) 136.5 RPR Titer 11/14/18 11/14/18 11/14/18 05:11 07:00 10:53 WBC RBC Hgb Hct MCV MCH MCHC RDW Plt Count MPV Sodium Potassium Chloride Carbon Dioxide Anion Gap BUN Creatinine Est GFR (CKD-EPI)AfAm Est GFR (CKD-EPI)NonAf POC Glucometer 139 182 Random Glucose Calcium Total Bilirubin AST ALT Alkaline Phosphatase Total Protein Albumin Urine Color Urine Appearance Urine pH Ur Specific [place] Urine Protein Urine Glucose (UA) Urine Ketones Urine Blood Urine Nitrite Urine Bilirubin Urine Urobilinogen Ur Leukocyte Esterase Urine WBC (Auto) Urine RBC (Auto) Urine Casts (Auto) U Epithel Cells (Auto) Urine Bacteria (Auto) RPR Titer Nonreactive 11/14/18 11/14/18 11/15/18 16:27 21:37 05:23 WBC RBC Hgb Hct MCV MCH MCHC RDW Plt Count MPV Sodium Potassium Chloride Carbon Dioxide Anion Gap BUN Creatinine Est GFR (CKD-EPI)AfAm Est GFR (CKD-EPI)NonAf POC Glucometer 114 422 104 Random Glucose Calcium Total Bilirubin AST ALT Alkaline Phosphatase Total Protein Albumin Urine Color Urine Appearance Urine pH Ur Specific [place] Urine Protein Urine Glucose (UA) Urine Ketones Urine Blood Urine Nitrite Urine Bilirubin Urine Urobilinogen Ur Leukocyte Esterase Urine WBC (Auto) Urine RBC (Auto) Urine Casts (Auto) U Epithel Cells (Auto) Urine Bacteria (Auto) RPR Titer 11/15/18 11/15/18 11/15/18 11:57 15:10 16:33 WBC RBC Hgb Hct MCV MCH MCHC RDW Plt Count MPV Sodium Potassium Chloride Carbon Dioxide Anion Gap BUN Creatinine Est GFR (CKD-EPI)AfAm Est GFR (CKD-EPI)NonAf POC Glucometer 441 63 142 Random Glucose Calcium Total Bilirubin AST ALT Alkaline Phosphatase Total Protein Albumin Urine Color Urine Appearance Urine pH Ur Specific [place] Urine Protein Urine Glucose (UA) Urine Ketones Urine Blood Urine Nitrite Urine Bilirubin Urine Urobilinogen Ur Leukocyte Esterase Urine WBC (Auto) Urine RBC (Auto) Urine Casts (Auto) U Epithel Cells (Auto) Urine Bacteria (Auto) RPR Titer LABS NOTED. RESULTS OF REPEAT UA PENDING. 11/15/18 16:46 Assessment: 11/15/18 16:45 WITHDRAWAL SYMPTOMS. ELEVATED LIVER ENZYMES. HYPERGLYCEMIA. 11/15/18 16:47 Plan: CONTINUE DETOX. INCREASE DAILY PO FLUID / WATER INTAKE. PRN PEPTO-BISMOL PO FOR DIARRHEA.
[2018-11-15 17:37] LABS: EPI CELLS 2.2 /HPF (0-5/HPF); PH,URINE 5.5 (5.0-8.0); URINE APPEARANCE CLEAR; URINE BACTERIA 30.1 /hpf (NEGATIVE); URINE BILIRUBIN NEGATIVE (NEGATIVE); URINE CASTS 1 /lpf (0-8); URINE COLOR YELLOW; URINE GLUCOSE (UA) NEGATIVE (NEGATIVE); URINE KETONE NEGATIVE (NEGATIVE); URINE LEUK ESTERASE NEGATIVE (NEGATIVE); URINE NITRITE NEGATIVE (NEGATIVE); URINE PROTEIN 1+ (NEGATIVE); URINE RBC 1 /hpf (0-4); URINE UROBILINOGEN 0.2 mg/dL (0.2-1.0); URINE WBC 2 /hpf (0-5)
[2018-11-15] MEDS: QUEtiapine FUMARATE 50 MG TABLET PO SCH ×2 (22:04→22:18)
[2018-11-15] MEDS: THIAMINE HCL 100 MG TABLET (FP) PO SCH (22:04)
[2018-11-15] MEDS: MELATONIN 5 MG TABLETS PO PRN (22:18)
[2018-11-16] MEDS: diazePAM 5 MG TABLET PO PRN (05:19)
[2018-11-16] MEDS: METHOCARBAMOL 500 MG TABLET PO PRN ×2 (05:19→22:41)
[2018-11-16] MEDS: metFORMIN HCL 500 MG TABLET (FP) PO SCH ×2 (06:11→17:10)
[2018-11-16] MEDS: INSULIN (NOVOLOG) ASPART 100 UNITS/ML 10ML VIAL SQ SCH ×4 (06:38→21:41)
[2018-11-16] MEDS: INSULIN (NOVOLOG MIX 70/30) 100 UNITS/ML MDV SQ SCH ×2 (07:41→17:11)
[2018-11-16] MEDS ORDERED: METHADONE HCL 10 MG TABLET (FOR DETOX USE ONLY) ONE (09:11)
[2018-11-16] MEDS ORDERED: METHADONE HCL 5 MG TABLET (FOR DETOX USE ONLY) ONE (09:12)
[2018-11-16] MEDS ORDERED: METHADONE (DETOX) 10 MG, METHADONE (DETOX) 5 MG PO ONE (10:00)
[2018-11-16] MEDS ORDERED: METHADONE HCL 10 MG TABLET (FOR DETOX USE ONLY) PO ONE (10:00)
[2018-11-16] MEDS: SERTRALINE HCL 50 MG TABLET (FP) PO SCH (10:26)
[2018-11-16] MEDS: NICOTINE 21 MG/24 HOURS TOPICAL PATCH TD SCH (10:27)
[2018-11-16] MEDS: PRENATAL VITAMINS W/ FOLIC ACID TABLET (FP) PO SCH (10:27)
[2018-11-16] MEDS: PATIENT'S OWN MEDICATION (NON-FORMULARY) (Darunavir/Cob/Emtri/Tenof Alaf [Symtuza 800-150- PO SCH (10:27)
[2018-11-16] MEDS: NICOTINE POLACRILEX 2 MG GUM BUC PRN (10:28)
--- NOTE | 2018-11-16 12:32 | PN ---
S COWS - Scale Resting Pulse: 0= OR 80 or Below Sweatin= No chills or Flushing Restless Observation: 0= Sits Still Pupil Size: 0= Normal to Room Light Bone or Joint Aches: 1= Mild Discomfort Runny Nose/ Eye Tearin= None GI Upset > 30mins: 0= None Tremor Observation of Outstretched Hands: 1= Tremor [place], Not Seen Yawning Observation: 1= 1-2x During Session Anxiety or Irritability: 2=Irritable/Anxious Goose Flesh Skin: 0=Smooth Skin COWS Score: 5 BHS Progress Note (SOAP) Subjective: REPORTS DETOX PROCEEDING WELL AND MEDS EFFECTIVE FOR W/SX. OOB AMBULATING WITH STAEDY GAIT. Objective: 11/16/18 12:30 Vital Signs 11/16/18 06:05 Temperature 97.3 F L Pulse Rate 65 Respiratory 18 Rate Blood Pressure 103/58 L Laboratory Tests 11/13/18 11/13/18 11/13/18 10:30 10:30 11:21 WBC 5.1 RBC 4.08 Hgb 13.5 Hct 41.1 MCV 100.6 H MCH 33.1 MCHC 32.9 RDW 13.7 Plt Count 272 D MPV 8.8 D Sodium 134 L Potassium 4.9 Chloride 98 Carbon Dioxide 29 Anion Gap 6 L BUN 8 Creatinine 1.1 Est GFR (CKD-EPI)AfAm 103.85 Est GFR (CKD-EPI)NonAf 89.61 POC Glucometer 397 Random Glucose 429 H* Calcium 9.1 Total Bilirubin 0.9 AST 76 H ALT 123 H Alkaline Phosphatase 177 H Total Protein 7.5 Albumin 3.0 L Urine Color Urine Appearance Urine pH Ur Specific [place] Urine Protein Urine Glucose (UA) Urine Ketones Urine Blood Urine Nitrite Urine Bilirubin Urine Urobilinogen Ur Leukocyte Esterase Urine WBC (Auto) Urine RBC (Auto) Urine Casts (Auto) U Epithel Cells (Auto) Urine Bacteria (Auto) RPR Titer 11/13/18 11/13/18 11/13/18 11:50 16:29 20:50 WBC RBC Hgb Hct MCV MCH MCHC RDW Plt Count MPV Sodium Potassium Chloride Carbon Dioxide Anion Gap BUN Creatinine Est GFR (CKD-EPI)AfAm Est GFR (CKD-EPI)NonAf POC Glucometer 111 470 Random Glucose Calcium Total Bilirubin AST ALT Alkaline Phosphatase Total Protein Albumin Urine Color Yellow Urine Appearance Clear Urine pH 6.0 Ur Specific [place] 1.041 H Urine Protein 4+ H Urine Glucose (UA) 3+ H Urine Ketones Trace H Urine Blood 1+ H Urine Nitrite Negative Urine Bilirubin Negative Urine Urobilinogen 1.0 Ur Leukocyte Esterase Negative Urine WBC (Auto) 3 Urine RBC (Auto) 5 Urine Casts (Auto) 15 U Epithel Cells (Auto) 4.2 Urine Bacteria (Auto) 136.5 RPR Titer 11/14/18 11/14/18 11/14/18 05:11 07:00 10:53 WBC RBC Hgb Hct MCV MCH MCHC RDW Plt Count MPV Sodium Potassium Chloride Carbon Dioxide Anion Gap BUN Creatinine Est GFR (CKD-EPI)AfAm Est GFR (CKD-EPI)NonAf POC Glucometer 139 182 Random Glucose Calcium Total Bilirubin AST ALT Alkaline Phosphatase Total Protein Albumin Urine Color Urine Appearance Urine pH Ur Specific [place] Urine Protein Urine Glucose (UA) Urine Ketones Urine Blood Urine Nitrite Urine Bilirubin Urine Urobilinogen Ur Leukocyte Esterase Urine WBC (Auto) Urine RBC (Auto) Urine Casts (Auto) U Epithel Cells (Auto) Urine Bacteria (Auto) RPR Titer Nonreactive 11/14/18 11/14/18 11/15/18 16:27 21:37 05:23 WBC RBC Hgb Hct MCV MCH MCHC RDW Plt Count MPV Sodium Potassium Chloride Carbon Dioxide Anion Gap BUN Creatinine Est GFR (CKD-EPI)AfAm Est GFR (CKD-EPI)NonAf POC Glucometer 114 422 104 Random Glucose Calcium Total Bilirubin AST ALT Alkaline Phosphatase Total Protein Albumin Urine Color Urine Appearance Urine pH Ur Specific [place] Urine Protein Urine Glucose (UA) Urine Ketones Urine Blood Urine Nitrite Urine Bilirubin Urine Urobilinogen Ur Leukocyte Esterase Urine WBC (Auto) Urine RBC (Auto) Urine Casts (Auto) U Epithel Cells (Auto) Urine Bacteria (Auto) RPR Titer 11/15/18 11/15/18 11/15/18 08:50 11:57 15:10 WBC RBC Hgb Hct MCV MCH MCHC RDW Plt Count MPV Sodium Potassium Chloride Carbon Dioxide Anion Gap BUN Creatinine Est GFR (CKD-EPI)AfAm Est GFR (CKD-EPI)NonAf POC Glucometer 441 63 Random Glucose Calcium Total Bilirubin AST ALT Alkaline Phosphatase Total Protein Albumin Urine Color Yellow Urine Appearance Clear Urine pH 5.5 Ur Specific [place] 1.011 Urine Protein 1+ H Urine Glucose (UA) Negative Urine Ketones Negative Urine Blood Negative Urine Nitrite Negative Urine Bilirubin Negative Urine Urobilinogen 0.2 Ur Leukocyte Esterase Negative Urine WBC (Auto) 2 Urine RBC (Auto) 1 Urine Casts (Auto) 1 U Epithel Cells (Auto) 2.2 Urine Bacteria (Auto) 30.1 RPR Titer 11/15/18 11/15/18 11/16/18 16:33 20:48 05:19 WBC RBC Hgb Hct MCV MCH MCHC RDW Plt Count MPV Sodium Potassium Chloride Carbon Dioxide Anion Gap BUN Creatinine Est GFR (CKD-EPI)AfAm Est GFR (CKD-EPI)NonAf POC Glucometer 142 233 126 Random Glucose Calcium Total Bilirubin AST ALT Alkaline Phosphatase Total Protein Albumin Urine Color Urine Appearance Urine pH Ur Specific [place] Urine Protein Urine Glucose (UA) Urine Ketones Urine Blood Urine Nitrite Urine Bilirubin Urine Urobilinogen Ur Leukocyte Esterase Urine WBC (Auto) Urine RBC (Auto) Urine Casts (Auto) U Epithel Cells (Auto) Urine Bacteria (Auto) RPR Titer 11/16/18 10:32 WBC RBC Hgb Hct MCV MCH MCHC RDW Plt Count MPV Sodium Potassium Chloride Carbon Dioxide Anion Gap BUN Creatinine Est GFR (CKD-EPI)AfAm Est GFR (CKD-EPI)NonAf POC Glucometer 136 Random Glucose Calcium Total Bilirubin AST ALT Alkaline Phosphatase Total Protein Albumin Urine Color Urine Appearance Urine pH Ur Specific [place] Urine Protein Urine Glucose (UA) Urine Ketones Urine Blood Urine Nitrite Urine Bilirubin Urine Urobilinogen Ur Leukocyte Esterase Urine WBC (Auto) Urine RBC (Auto) Urine Casts (Auto) U Epithel Cells (Auto) Urine Bacteria (Auto) RPR Titer Assessment: 11/16/18 12:31 WITHDRAWAL SX Plan: CONTINUE DETOX
[2018-11-16] MEDS: hydrOXYzine PAMOATE 25 MG CAPSULE (FP) PO PRN (13:55)
[2018-11-16] MEDS ORDERED: INSULIN SLIDING SCALE (NOVOLOG) 1 VIAL SQ ONE (17:08)
[2018-11-16] MEDS: THIAMINE HCL 100 MG TABLET (FP) PO SCH (22:40)
[2018-11-16] MEDS: QUEtiapine FUMARATE 50 MG TABLET PO SCH (22:40)
[2018-11-16] MEDS: MELATONIN 5 MG TABLETS PO PRN (22:40)
[2018-11-17] MEDS: METHOCARBAMOL 500 MG TABLET PO PRN ×3 (05:26→22:24)
[2018-11-17] MEDS: hydrOXYzine PAMOATE 25 MG CAPSULE (FP) PO PRN (05:26)
[2018-11-17] MEDS ORDERED: METHADONE HCL 5 MG TABLET (FOR DETOX USE ONLY) PO ONE (06:00)
[2018-11-17] MEDS: metFORMIN HCL 500 MG TABLET (FP) PO SCH ×2 (06:23→17:30)
[2018-11-17] MEDS ORDERED: INSULIN SLIDING SCALE (NOVOLOG) 1 VIAL SQ ONE ×3 (07:34→20:13)
[2018-11-17] MEDS: INSULIN (NOVOLOG MIX 70/30) 100 UNITS/ML MDV SQ SCH ×2 (08:02→17:30)
[2018-11-17] MEDS: INSULIN (NOVOLOG) ASPART 100 UNITS/ML 10ML VIAL SQ SCH ×4 (08:02→22:25)
[2018-11-17] MEDS ORDERED: METHADONE HCL 10 MG TABLET (FOR DETOX USE ONLY) PO ONE (10:00)
[2018-11-17] MEDS: PATIENT'S OWN MEDICATION (NON-FORMULARY) (Darunavir/Cob/Emtri/Tenof Alaf [Symtuza 800-150- PO SCH (10:40)
[2018-11-17] MEDS: NICOTINE 21 MG/24 HOURS TOPICAL PATCH TD SCH (10:41)
[2018-11-17] MEDS: PRENATAL VITAMINS W/ FOLIC ACID TABLET (FP) PO SCH (10:41)
[2018-11-17] MEDS: SERTRALINE HCL 50 MG TABLET (FP) PO SCH (10:41)
--- NOTE | 2018-11-17 14:18 | PN ---
BHS COWS - Scale Resting Pulse: 2= [place] 101-120 Sweatin= Chills/Flushing Restless Observation: 0= Sits Still Pupil Size: 0= Normal to Room Light Bone or Joint Aches: 1= Mild Discomfort Runny Nose/ Eye Tearin= None GI Upset > 30mins: 0= None Tremor Observation of Outstretched Hands: 0= None Yawning Observation: 0= None Anxiety or Irritability: 1=Feels Anxious/Irritable Goose Flesh Skin: 0=Smooth Skin COWS Score: 5 BHS Progress Note (SOAP) Subjective: feeling better today discuss medication assisted maintenance treatment program encourage slat pickler narcan from pharmacy patietn preferring return to infectious disease specialist for medical and mental issues Objective: 11/17/18 14:20 Vital Signs Temperature 96.8 F L 11/17/18 13:31 Pulse Rate 112 H 11/17/18 13:31 Respiratory Rate 18 11/17/18 13:31 Blood Pressure 110/73 11/17/18 13:31 O2 Sat by Pulse Oximetry (%) Laboratory Last Values WBC 5.1 K/mm3 (4.0-10.0) 11/13/18 10:30 RBC 4.08 M/mm3 (4.00-5.60) 11/13/18 10:30 Hgb 13.5 GM/dL (11.7-16.9) 11/13/18 10:30 Hct 41.1 % (35.4-49) 11/13/18 10:30 MCV 100.6 fl (80-96) H 11/13/18 10:30 MCH 33.1 pg (25.7-33.7) 11/13/18 10:30 MCHC 32.9 g/dl (32.0-35.9) 11/13/18 10:30 RDW 13.7 % (11.9-15.9) 11/13/18 10:30 Plt Count 272 K/MM3 (134-434) D 11/13/18 10:30 MPV 8.8 fl (7.5-11.1) D 11/13/18 10:30 Sodium 134 mmol/L (136-145) L 11/13/18 10:30 Potassium 4.9 mmol/L (3.5-5.1) 11/13/18 10:30 Chloride 98 mmol/L (98-107) 11/13/18 10:30 Carbon Dioxide 29 mmol/L (21-32) 11/13/18 10:30 Anion Gap 6 MMOL/L (8-16) L 11/13/18 10:30 BUN 8 mg/dL (7-18) 11/13/18 10:30 Creatinine 1.1 mg/dL (0.55-1.3) 11/13/18 10:30 Est GFR (CKD-EPI)AfAm 103.85 11/13/18 10:30 Est GFR (CKD-EPI)NonAf 89.61 11/13/18 10:30 POC Glucometer 142 UNITS (80-120) 11/17/18 10:43 Random Glucose 429 mg/dL (74-106) H* 11/13/18 10:30 Calcium 9.1 mg/dL (8.5-10.1) 11/13/18 10:30 Total Bilirubin 0.9 mg/dL (0.2-1) 11/13/18 10:30 AST 76 U/L (15-37) H 11/13/18 10:30 ALT 123 U/L (13-61) H 11/13/18 10:30 Alkaline Phosphatase 177 U/L (45-117) H 11/13/18 10:30 Total Protein 7.5 g/dl (6.4-8.2) 11/13/18 10:30 Albumin 3.0 g/dl (3.4-5.0) L 11/13/18 10:30 Urine Color Yellow 11/15/18 08:50 Urine Appearance Clear 11/15/18 08:50 Urine pH 5.5 (5.0-8.0) 11/15/18 08:50 Ur Specific [place] 1.011 (1.010-1.035) 11/15/18 08:50 Urine Protein 1+ (NEGATIVE) H 11/15/18 08:50 Urine Glucose (UA) Negative (NEGATIVE) 11/15/18 08:50 Urine Ketones Negative (NEGATIVE) 11/15/18 08:50 Urine Blood Negative (NEGATIVE) 11/15/18 08:50 Urine Nitrite Negative (NEGATIVE) 11/15/18 08:50 Urine Bilirubin Negative (NEGATIVE) 11/15/18 08:50 Urine Urobilinogen 0.2 mg/dL (0.2-1.0) 11/15/18 08:50 Ur Leukocyte Esterase Negative (NEGATIVE) 11/15/18 08:50 Urine WBC (Auto) 2 /hpf (0-5) 11/15/18 08:50 Urine RBC (Auto) 1 /hpf (0-4) 11/15/18 08:50 Urine Casts (Auto) 1 /lpf (0-8) 11/15/18 08:50 U Epithel Cells (Auto) 2.2 /HPF (0-5/HPF) 11/15/18 08:50 Urine Bacteria (Auto) 30.1 /hpf (NEGATIVE) 11/15/18 08:50 RPR Titer Nonreactive (NONREACTIVE) 11/14/18 07:00 lab noted bring in medication list and lab report to aftercare appointment Assessment: 11/17/18 14:20 mild opiate withdrawal sx Plan: continue detox
[2018-11-17] MEDS: QUEtiapine FUMARATE 50 MG TABLET PO SCH (22:24)
[2018-11-17] MEDS: THIAMINE HCL 100 MG TABLET (FP) PO SCH (22:24)
[2018-11-17] MEDS: NICOTINE POLACRILEX 2 MG GUM BUC PRN (22:24)
[2018-11-17] MEDS: MELATONIN 5 MG TABLETS PO PRN (22:24)
[2018-11-18] MEDS: hydrOXYzine PAMOATE 25 MG CAPSULE (FP) PO PRN (05:19)
[2018-11-18] MEDS ORDERED: METHADONE HCL 5 MG TABLET (FOR DETOX USE ONLY) PO ONE (06:00)
[2018-11-18] MEDS: metFORMIN HCL 500 MG TABLET (FP) PO SCH (06:11)
[2018-11-18] MEDS: INSULIN (NOVOLOG) ASPART 100 UNITS/ML 10ML VIAL SQ SCH ×2 (06:15→12:56)
[2018-11-18 06:22] VITALS: PULSE 78
[2018-11-18] MEDS: INSULIN (NOVOLOG MIX 70/30) 100 UNITS/ML MDV SQ SCH (07:41)
[2018-11-18 09:13] VITALS: BP 151/89; TEMP 98.1
[2018-11-18] MEDS: SERTRALINE HCL 50 MG TABLET (FP) PO SCH (10:20)
[2018-11-18] MEDS: PATIENT'S OWN MEDICATION (NON-FORMULARY) (Darunavir/Cob/Emtri/Tenof Alaf [Symtuza 800-150- PO SCH (10:20)
[2018-11-18] MEDS: PRENATAL VITAMINS W/ FOLIC ACID TABLET (FP) PO SCH (10:20)
[2018-11-18] MEDS: NICOTINE 21 MG/24 HOURS TOPICAL PATCH TD SCH (10:21)
--- NOTE | 2018-11-18 15:28 | DS ---
[facility] Detox Discharge Summary Admission Date: 11/13/18 Discharge Date: 11/18/18 - History Present History: Opioid Dependence Additional Comments: 32 years old male admitted on 11/13/18 for opiate withdrawal edelmira completed detox regimen aftercare medication assisted maintenance treatment program Pertinent Past History: bring in medication list and lab report to aftercare appointment patient agrees to return to ectious disease specailist for medical and mental issues - Physical Exam Results Vital Signs: Vital Signs Temperature 98.1 F 11/18/18 09:12 Pulse Rate 78 11/18/18 09:12 Respiratory Rate 18 11/18/18 09:12 Blood Pressure 151/89 11/18/18 09:12 O2 Sat by Pulse Oximetry (%) Pertinent Admission Physical Exam Findings: opiate withdrawal sx Laboratory Last Values WBC 5.1 K/mm3 (4.0-10.0) 11/13/18 10:30 RBC 4.08 M/mm3 (4.00-5.60) 11/13/18 10:30 Hgb 13.5 GM/dL (11.7-16.9) 11/13/18 10:30 Hct 41.1 % (35.4-49) 11/13/18 10:30 MCV 100.6 fl (80-96) H 11/13/18 10:30 MCH 33.1 pg (25.7-33.7) 11/13/18 10:30 MCHC 32.9 g/dl (32.0-35.9) 11/13/18 10:30 RDW 13.7 % (11.9-15.9) 11/13/18 10:30 Plt Count 272 K/MM3 (134-434) D 11/13/18 10:30 MPV 8.8 fl (7.5-11.1) D 11/13/18 10:30 Sodium 134 mmol/L (136-145) L 11/13/18 10:30 Potassium 4.9 mmol/L (3.5-5.1) 11/13/18 10:30 Chloride 98 mmol/L (98-107) 11/13/18 10:30 Carbon Dioxide 29 mmol/L (21-32) 11/13/18 10:30 Anion Gap 6 MMOL/L (8-16) L 11/13/18 10:30 BUN 8 mg/dL (7-18) 11/13/18 10:30 Creatinine 1.1 mg/dL (0.55-1.3) 11/13/18 10:30 Est GFR (CKD-EPI)AfAm 103.85 11/13/18 10:30 Est GFR (CKD-EPI)NonAf 89.61 11/13/18 10:30 POC Glucometer 143 UNITS (80-120) 11/18/18 05:18 Random Glucose 429 mg/dL (74-106) H* 11/13/18 10:30 Calcium 9.1 mg/dL (8.5-10.1) 11/13/18 10:30 Total Bilirubin 0.9 mg/dL (0.2-1) 11/13/18 10:30 AST 76 U/L (15-37) H 11/13/18 10:30 ALT 123 U/L (13-61) H 11/13/18 10:30 Alkaline Phosphatase 177 U/L (45-117) H 11/13/18 10:30 Total Protein 7.5 g/dl (6.4-8.2) 11/13/18 10:30 Albumin 3.0 g/dl (3.4-5.0) L 11/13/18 10:30 Urine Color Yellow 11/15/18 08:50 Urine Appearance Clear 11/15/18 08:50 Urine pH 5.5 (5.0-8.0) 11/15/18 08:50 Ur Specific [place] 1.011 (1.010-1.035) 11/15/18 08:50 Urine Protein 1+ (NEGATIVE) H 11/15/18 08:50 Urine Glucose (UA) Negative (NEGATIVE) 11/15/18 08:50 Urine Ketones Negative (NEGATIVE) 11/15/18 08:50 Urine Blood Negative (NEGATIVE) 11/15/18 08:50 Urine Nitrite Negative (NEGATIVE) 11/15/18 08:50 Urine Bilirubin Negative (NEGATIVE) 11/15/18 08:50 Urine Urobilinogen 0.2 mg/dL (0.2-1.0) 11/15/18 08:50 Ur Leukocyte Esterase Negative (NEGATIVE) 11/15/18 08:50 Urine WBC (Auto) 2 /hpf (0-5) 11/15/18 08:50 Urine RBC (Auto) 1 /hpf (0-4) 11/15/18 08:50 Urine Casts (Auto) 1 /lpf (0-8) 11/15/18 08:50 U Epithel Cells (Auto) 2.2 /HPF (0-5/HPF) 11/15/18 08:50 Urine Bacteria (Auto) 30.1 /hpf (NEGATIVE) 11/15/18 08:50 RPR Titer Nonreactive (NONREACTIVE) 11/14/18 07:00 lab noted - Treatment Hospital Course: Detox Protocol Followed, Detoxed Safely, Responded well, Discharged Condition Good, Rehab Referral Accepted Patient has Accepted a Rehab Referral to: methadone assisted maintenance treatment program - Medication Discharge Medications: Ambulatory Orders Insulin (Novolog 70/30) [Novolog Mix 70/30 Vial -] 10 units SQ HS 08/21/18 Insulin (Novolog 70/30) [Novolog Mix 70/30 Vial -] 40 units SQ AM 08/21/18 Metformin HCl [Glucophage] 500 mg PO BID 08/21/18 Darunavir/Cob/Emtri/Tenof Alaf [Symtuza [id number] mg Tab] 1 each PO DAILY 11/13/18 Quetiapine Fumarate [Seroquel] 100 mg PO HS 11/13/18 Sertraline HCl [Zoloft -] 50 mg PO DAILY 11/14/18 Naloxone HCl [Narcan] 4 mg NS ASDIR PRN #1 spray 11/17/18 - Diagnosis (1) Opioid dependence with withdrawal Status: Acute (2) Substance induced mood disorder Status: Suspected (3) Weight loss Status: Acute (4) HIV (human immunodeficiency virus infection) Status: Chronic Qualifiers: HIV symptom status: unspecified Qualified Code(s): B20 - Human immunodeficiency virus [HIV] disease (5) Nicotine dependence Status: Acute Qualifiers: Nicotine product type: cigarettes Substance use status: in withdrawal Qualified Code(s): F17.213 - Nicotine dependence, cigarettes, with withdrawal (6) Substance induced mood disorder Status: Suspected - AMA Did Patient Leave Against Medical Advice: No
== END 2018-11-18 11:22 | disposition home or self-care (01) | DRG 773 ==
LOC: YASAS 08:50 → Y3N 11:14
PROVIDERS: ADMIT Surgery; ATTEND Surgery
PROC: HZ2ZZZZ Detoxification Services for Substance Abuse Treatment (ICD-10-PCS; principal; 2018-11-13)
DX: F11.23 Opioid dependence with withdrawal (principal); F14.20 Cocaine dependence, uncomplicated; F17.213 Nicotine dependence, cigarettes, with withdrawal; F19.24 Other psychoactive substance dependence with psychoactive substance-induced mood disorder; F19.282 Other psychoactive substance dependence with psychoactive substance-induced sleep disorder; F31.9 Bipolar disorder, unspecified; F39 Unspecified mood [affective] disorder; Z21 Asymptomatic human immunodeficiency virus [HIV] infection status; D50.9 Iron deficiency anemia, unspecified; R73.9 Hyperglycemia, unspecified; R94.5 Abnormal results of liver function studies; E10.9 Type 1 diabetes mellitus without complications; Z79.4 Long term (current) use of insulin; R63.4 Abnormal weight loss; Z68.21 Body mass index [BMI] 21.0-21.9, adult
CPT/HCPCS: 36415; 80053; 81003; 82962; 85027; 86593; J0735